=== PATIENT | female | born 1940 | race Caucasian/White ===

== ENCOUNTER 2018-12-04 08:52 | Outpatient (CLI) | payer OTHER, SELFPAY ==
--- NOTE | 2018-12-04 09:00 | DI.COMBO_ITS ---
SYMPTOM/DIAGNOSIS: DIAGNOSTIC, LT BREAST LUMP, N63.20 MAMMOGRAMS AND LEFT BREAST ULTRASOUND: Mammograms were interpreted according to the usual protocol including computer analysis with CAD system, tomosynthesis and C view imaging. Breast density, Category A. No suspicious masses or microcalcifications are seen. There has been no significant change compared to the prior examination. A left breast ultrasound was performed in the area of palpable concern. No cystic or solid masses are seen sonographically. IMPRESSION: No evidence for malignancy. Yearly mammography is recommended. Category 1. Negative mammogram and ultrasound should not preclude biopsy of a clinically suspicious mass. The findings were discussed with the patient on the date of the examination. [facility] ASSESSMENT OF FINDINGS: Negative. Category 1. Patient will receive a letter notifying them of these results. BI-RAD category A. The breasts are almost entirely fatty.
== END 2018-12-04 09:12 ==
PROVIDERS: PCP Family Medicine; Visit Provider Family Medicine
DX: N63.20 Unspecified lump in the left breast, unspecified quadrant (principal)
CPT/HCPCS: 76642; 77062; 77066; G0279

== ENCOUNTER 2019-08-06 11:34 | Outpatient (REF) | payer OTHER, SELFPAY | END 2019-08-06 11:54 | LOC: NCHCN 11:34 | PROVIDERS: PCP Family Medicine; Visit Provider Nurse Practitioner Family | DX: R82.79 Other abnormal findings on microbiological examination of urine (principal); M25.559 Pain in unspecified hip | CPT/HCPCS: 87086 ==

== ENCOUNTER 2019-08-07 00:56 | Outpatient (CLI) | payer OTHER, SELFPAY ==
--- NOTE | 2019-08-07 08:04 | DI.RAD_ITS ---
EXAM: XR HIP RT COMPLETE AP PELVIS INDICATION: RT HIP PAIN,M25.559,H/O ENDOMETRIAL CA IN .H/O HYSTERECTOMY,?ARTHRITI. COMPARISON: No exams were available for comparison TECHNIQUE: 2D digital imaging was performed. FINDINGS: Images of the right hip reveal severe DJD. There is no localized area of osteolysis, sclerosis or sumi ny expansion to suggest metastatic disease.
== END 2019-08-07 01:16 ==
PROVIDERS: PCP Family Medicine; Visit Provider Nurse Practitioner Family
DX: M25.551 Pain in right hip (principal); M16.11 Unilateral primary osteoarthritis, right hip; Z85.42 Personal history of malignant neoplasm of other parts of uterus
CPT/HCPCS: 73502

== ENCOUNTER 2020-05-27 19:17 | Outpatient (REF) | payer OTHER, SELFPAY ==
[2020-05-27 19:25] LABS: HCT 40.2 % (36.0-46.0); HGB 12.7 g/dL (11.2-15.7); MCH 28.9 pg (27.0-33.0); MCHC 31.6 % (32.0-36.0); MCV 91.4 fL (80-95); MPV 10.7 fL (8.0-11.0); Platelet Count 402 10^3/uL (130-400); RDW 12.5 % (11.7-14.6); RDW-SD 41.5 fL; WBC 10.15 10^3/uL (4.4-10.8)
[2020-05-27 19:50] LABS: Glucose 86 mg/dL (74-106); TSH (W/Ref FT4) 2.24 uIU/mL (0.36-3.74)
== END 2020-05-27 19:37 ==
LOC: NCHCN 19:17
PROVIDERS: PCP Family Medicine; Visit Provider Family Medicine
DX: E78.5 Hyperlipidemia, unspecified (principal); Z13.1 Encounter for screening for diabetes mellitus; Z13.29 Encounter for screening for other suspected endocrine disorder
CPT/HCPCS: 82947; 85027; 84443

== ENCOUNTER 2020-08-06 22:46 | Outpatient (REF) | payer OTHER, SELFPAY ==
[2020-08-06 19:24] LABS: Abs Immature Grans 0.02 10^3/uL (0.0-0.06); Absolute Basophil Count 0.06 10^3/uL (0.0-0.2); Absolute Eosinophil Count 0.13 10^3/uL (0.0-0.7); Absolute Lymphocyte Count 3.59 10^3/uL (1.2-3.4); Absolute Monocyte Count 0.65 10^3/uL (0.1-0.8); Absolute Neutrophil Count 5.38 10^3/uL (1.2-6.7); Basophils % 0.6; Eosinophils % 1.3; HGB 12.8 g/dL (11.2-15.7); Immature Grans % 0.2; Lymphocytes % 36.5; MCH 29.2 pg (27.0-33.0); MCHC 31.2 % (32.0-36.0); MCV 93.4 fL (80-95); MPV 10.7 fL (8.0-11.0); Monocytes % 6.6; Neutrophils % 54.8; Nucleated RBC 0 %; Platelet Count 404 10^3/uL (130-400); RBC 4.39 10^6/uL (3.93-5.22); RDW 12.8 % (11.7-14.6); RDW-SD 43.8 fL; WBC 9.83 10^3/uL (4.4-10.8)
[2020-08-06 19:47] LABS: ALT 17 U/L (14-59); AST 17 U/L (15-37); Albumin 3.7 g/dL (3.4-5.0); Alkaline Phosphatase 97 U/L (46-116); BUN 12 mg/dL (7-18); Bilirubin, Total 0.3 mg/dL (0.2-1.0); CREATININE 0.81 mg/dL (0.55-1.02); Calcium 9.4 mg/dL (8.5-10.1); Chloride 102 mmol/L (98-107); Glucose 87 mg/dL (74-106); Sodium 138 mmol/L (136-145); Total Protein 7.6 g/dL (6.4-8.2)
== END 2020-08-06 23:06 ==
LOC: NCHCN 22:46
PROVIDERS: PCP Family Medicine; Visit Provider Physician Assistant Medical
DX: Z01.818 Encounter for other preprocedural examination (principal)
CPT/HCPCS: 80053; 85025

== ENCOUNTER 2020-10-06 01:19 | Outpatient (CLI) | payer OTHER, SELFPAY ==
--- OUTSIDE RECORDS SUMMARY | 2020-10-06 01:21 | XMS_ITS ---
:1940 Author Organization [facility] Address [address] [place] [address] Care Team Providers Name Role Phone Merary oLco Unavailable Unavailable PROBLEMS Type Condition ICD9-CM [id number] Onset Condition SNOMED Cod e Code Code Dates Status Problem Hammertoe of M20.41 Active 8074111 [id number] second toe of right foot Problem Unspecified lump N63.20 Active 122 [id number] in the left breast, unspecified quadrant Problem Bunion of M21.619 Active 604963418 unspecified foot Problem Hammertoe of M20.42 Active 6376709 332688076 second toe of left foot Problem Diverticulosis of K57.30 Active 73 1845151 colon Problem Elevated BP R03.0 Active 32326676 5 without diagnosis of hypertension Problem Hand numbness R20.0 Active 625739 05 Problem Malignant neoplasm C54.1 Active 1 86943518 of endometrium Problem Ankle fracture, S82.892A Active 4218 8001 left Problem Overweight E66.3 Active 524247593 Problem Hip pain M25.559 Active 74485326 Problem Hammertoe M20.40 Active 134041904 Problem Joint swelling M25.40 Active 57970 1009 Problem Chest pain R07.9 Active 68550116 Problem Easy bruising R23.8 Active 509524 007 Problem Lump of breast N63.0 Active 06616 003 Problem TIA (transient G45.9 Active 56641 7000 ischemic attack) Problem Rash R21 Active 5463190 Problem Memory loss R41.3 Active 12560413 Problem Insomnia G47.00 Active 350465824 ALLERGIES No Known Allergies ENCOUNTERS Encounter Location Date Diagnosis [facility] [address] [facility] [address] Aug, [place] [address] right foot M 20.41 [facility] [address] [facility] [address] Aug, [place] [address] right foot M 20.41 [facility] [address] [facility] Aug, [place] [address] [facility] [address] [facility] Aug, [place] [address] [facility] [address] [facility] Jul, [place] [address] [address] [address] [facility] Jul, [place] [address] [facility] [address] [facility], [place] [address] [facility] [address] [facility], [facility], [place] [address] [facility] [address] [facility] [address] Jul, [place] [address] right foot M 20.41 and Bunion, right fo ot M21.611 [facility] [address] [facility] Jul, Hammertoe M20. 40 ; [place] [address] of second to e of right foot M20.41 ; Hammert oe of second toe of left foot M20.42 ; Bunion, right fo ot M21.611 and Bunion, left foot M21.612 IMMUNIZATIONS No Known Immunizations SOCIAL HISTORY Qualifiers Date Never Smoker REASON FOR REFERRAL FUNCTIONAL STATUS PLAN OF CARE Activity Details Follow Up prn Reason: Future Test X Foot L 3V 20200722 Future Test X Foot R 3V 20200722 VITAL SIGNS Height 63 in 2020-09-01 Weight 142 lbs 2020-09-01 BMI 25.15 kg/m2 2020-09-01 Temperature 97.0 degrees Fahrenheit 2020-09-01 Heart Rate 64 /min 2020-09-01 Respiratory Rate 18 /min 2020-09-01 Oximetry 100 % 2020-09-01 Blood pressure systolic 151 mm Hg 2020-09-01 Blood pressure diastolic 73 mm Hg 2020-09-01 MEDICATIONS Medication Instructions Dosage Frequency Start End Date Duration Stat us Date Tylenol 8 Hour Orally every 8 2 tablets 8h Active Arthritis Pain hrs as needed 650 MG PROCEDURES No Known procedures RESULTS Name Result Date Reference Range X Foot R 3V 2020-08-19 See Below For Report [id number] 2020-08-14 COVID-19 Not Detected Not Detected X Foot L 3V 2020-07-22 See Below For Report X Foot R 3V 2020-07-22 See Below For Report REASON FOR VISIT POST OP #4 cancelled per AR on 09-01-2020, POST OP #3 Xrays cancelled per AR on 09-01-2020, POST OP #2, referral done, pt states that she is here for post op 2 , pt states that things have been going good, and that she hasn't had any pain , POST OP #1, referral done, Amputation of Right Second Toe atthe Metatarsophalangeal Joint 08/19/20 by KIMI CARRERO, pt states that she is here for post op 1 , pt states that things are going okay , pt states that she only used tylenol for a couple days after surgery,last dose was taken on sunday , 2ng toe amp right foot, Right 2nd toe MTPJ amputation, Pre-op DOS 08/19/20, PCP note 08/10KG, surgery/note, PDMP query surgery 08/12, pre-op for 08/19 surgery, referral done, pt states that she is here for pre-op appointment , pt states that she would like to discuss moreabout being able to walk after surgery , hammer toe referral done, pt states that she is here for a hammer toe , pt states that the hammertoe is on the right foot 2nd toe , pt states that toe is painful after she does a lot of walking , pt states that the toe has been bothering her for the past month,but has been curled for a long time now , pt states that she is looking for away to help reduce the pain when she is walking , pt states that she has not had any x-rays done Insurance Providers [facility] Health Member Patient Patient Patient Patient Patient Subscriber Subscriber Subscriber Group Insurance Plan Plan Plan Plan ID Relationship Address Phone Name Date of ID Name Date of No Type Insurance Insurance Insurance Coverage to Subscriber Address Phone Name Dates UNITED [phone] [place] self LINDA [id number] [facility] [id number] [facility] [place] MEDICARE COMPLETE [facility] COMPLETE [phone] SELF PAY self LINDA [id number] [place] [id number] MEDICARE MEDICAL (GENERAL) HISTORY Type Description Date Medical History Memory loss Medical History Easy bruising Medical History Hammertoe Medical History Bunion of unspecified foot Medical History Insomnia Medical History Hip pain Medical History Unspecified lump in the left breast, uns pecified quadrant Medical History Rash Medical History Hand numbness Medical History Joint swelling Medical History TIA (transient ischemic attack) Medical History Ankle fracture, left Medical History Malignant neoplasm of endometrium Medical History Diverticulosis of colon Medical History Lump of breast Medical History Overweight Medical History Elevated BP without diagnosis of hyperte nsion Medical History Chest pain Surgical History S/P appendectomy Surgical History S/P cholecysteotomy Surgical History S/P PATITO/BSO Surgical History s/p Amputation of Right Second Toe at th e 08/19/2020 Metatarsophalangeal Joint Hospitalization History No Hospitalization history informati on
[2020-10-06 12:53] LABS: CREATININE 0.85 mg/dL (0.55-1.02)
[2020-10-06] MEDS: Omnipaque 350 MG/ML 50 ML BTL PO (14:20)
--- NOTE | 2020-10-06 14:20 | DI.CT_ITS ---
EXAM: CT CHEST/ABD/PEL W CLINICAL HISTORY: RUQ PAIN,R10.11, CHEST PAIN,R07.89 TECHNIQUE: Imaging Protocol: Axial computed tomography images with coronal and sagittal reformatted images were created and reviewed CONTRAST MATERIAL: Intravenous: Omnipaque 350 Contrast volume:100 mL Oral: Yes COMPARISON: No exams were available for comparison FINDINGS: CHEST: Tracheobronchial tree: Patent where visualized. Mediastinum and Jodie: No dominant adenopathy or fluid collection. Pulmonary parenchyma: No consolidation or dominant measurable mass. No architectural distortion. Pleura: No effusion or pneumothorax. Heart: The heart is not dilated. No coronary artery calcifications are seen. No pericardial effusion. Aorta: Thoracic aorta non-dilated. Atherosclerosis. Lymph nodes: Within normal limits. Bones:Normal. Soft tissues: Unremarkable. ABDOMEN: Liver: Normal density. No measurable mass. Portal, Superior Mesenteric, and Splenic Veins: Unremarkable. Gallbladder and Biliary Tract: Status post cholecystectomy. No biliary ductal dilatation. Pancreas: Normal density, no abnormal calcifications or inflammatory process. Spleen: Normal. Adrenals: No masses seen. Kidneys: Normal size, contour and axis. No radiodense stones or obstructive uropathy. No masses seen. Abdominal Aorta: Abdominal portion non-dilated. Atherosclerosis. Bowel: No obstruction or bowel wall thickening. No evidence of appendicitis. Diverticulosis of the d escending and sigmoid colon but no evidence of acute diverticulitis. Peritoneal Cavity: No ascites, collection or mesenteric inflammatory response. Lymph Nodes: Within normal limits. Bones: Unremarkable. Soft Tissues: Unremarkable. PELVIS: Bladder: Symmetric distention, no gross wall thickening. Reproductive Organs: Status post hysterectomy. Lymph Nodes: Within normal limits. Bones: Marked degenerative changes are seen in the hips bilaterally. DISH is seen throughout the spi ne. IMPRESSION: 1. No acute abdominal or pelvic process. 2. No acute pulmonary process. 3. Marked degenerative changes of the hips bilaterally. 4. Status post cholecystectomy and hysterectomy. No biliary ductal dilatation. RADIATION DOSE DELIVERED: 1,009.01mGy.cm Total DLP DATA REPOSITORY: All CT scans at this facility are submitted to the National Radiology Data Registry (NRDR) Dose Index Registry (DIR) with the [employer] (ACR). RADIATION OPTIMIZATION: All CT scans at this facility use at least one of these dose optimization te chniques: automated exposure control; mA and/or kV adjustment per patient size (includes targeted exa ms where dose is matched to clinical indication); or iterative reconstruction.
[2020-10-06] MEDS: Normal Saline - Diluent 50 ML VIAL IV (14:21)
[2020-10-06] MEDS: Normal Saline Flush 10 ML SYR IVP (14:21)
== END 2020-10-06 01:39 ==
PROVIDERS: PCP Family Medicine; Visit Provider Family Medicine
DX: R10.11 Right upper quadrant pain (principal); R07.89 Other chest pain; M16.0 Bilateral primary osteoarthritis of hip; Z90.49 Acquired absence of other specified parts of digestive tract; Z90.710 Acquired absence of both cervix and uterus
CPT/HCPCS: 74177; 71260; 82565; Q9967

== ENCOUNTER 2020-12-31 14:50 | Outpatient (REF) | payer MEDICARE, SELFPAY ==
[2020-12-31 16:54] LABS: C-Reactive Protein 0.49 mg/dL (0.0-0.3); Creatine Kinase 79 U/L (26-192)
[2020-12-31 21:49] LABS: ESR 53 mm/hr (<or=30)
== END 2020-12-31 14:51 | disposition home or self-care (01) ==
LOC: NCHCN 14:50
PROVIDERS: PCP Family Medicine; Visit Provider Family Medicine
DX: R10.31 Right lower quadrant pain (principal); R21 Rash and other nonspecific skin eruption
CPT/HCPCS: 82550; 85652; 86140

== ENCOUNTER 2021-09-02 14:58 | Outpatient (REF) | payer MEDICARE, SELFPAY ==
[2021-09-02 19:48] LABS: ESR 34 mm/hr (0-30)
[2021-09-02 20:22] LABS: C-Reactive Protein 0.27 mg/dL (0.0-0.3); TSH (W/Ref FT4) 2.01 uIU/mL (0.36-3.74)
[2021-09-02 21:04] LABS: Vitamin B12 190 pg/mL (193-986)
== END 2021-09-02 14:59 | disposition home or self-care (01) ==
LOC: NCHCN 14:58
PROVIDERS: PCP Family Medicine; Visit Provider Family Medicine
DX: G25.2 Other specified forms of tremor (principal); Z00.00 Encounter for general adult medical examination without abnormal findings; R20.2 Paresthesia of skin
CPT/HCPCS: 85652; 82607; 84443; 86140

== ENCOUNTER 2023-01-16 01:54 | Outpatient (CLI) | payer MEDICARE, SELFPAY ==
--- NOTE | 2023-01-16 08:30 | DI.MAMMO_ITS ---
Exam(s) MAMMO SCREENING EXAM: MAMMO SCREENING CLINICAL HISTORY: SCREENING, Z12.31, FAMILY H/O BREAST CA, Z80.3 TECHNIQUE: Mammograms were interpreted according to the usual protocol including computer analysis w [employer] CAD system, tomosynthesis and C-view imaging. COMPARISON: 2013 through 2018 FINDINGS: The breasts are composed of scattered fibroglandular densities, Breast Density category B. No suspicious masses or suspicious microcalcifications are seen. No skin thickening or abnormal axillary lymph nodes are seen. There has been no significant change from prior exams. IMPRESSION: BI-RADS Category 1, Negative mammogram Yearly screening mammography is recommended. Breast Density - Category B, scattered fibroglandular densities. A negative radiographic report should not delay biopsy if a dominant or clinically suspicious mass is present. Up to ten percent of cancers are not identified on mammography. A negative report may reinforce clinical impression. Adenosis and dense breasts may obscure an underlying neoplasm. False positive reports average 6 to 10%. Patient will receive a letter notifying them of these results.
== END 2023-01-16 02:14 ==
LOC: DI 01:54
PROVIDERS: PCP Family Medicine; Visit Provider Family Medicine
DX: Z12.31 Encounter for screening mammogram for malignant neoplasm of breast (principal); Z80.3 Family history of malignant neoplasm of breast
CPT/HCPCS: 77063; 77067

== ENCOUNTER → 2023-07-05 13:14 | Outpatient (CLI) | payer MEDICARE, SELFPAY ==
--- NOTE | 2023-07-05 | DI.RAD_ITS ---
Exam(s) XR ANKLE LT COMPLETE EXAM: XR ANKLE LT COMPLETE CLINICAL HISTORY: LT ANKLE PAIN, M25.72,HARDWARE IN PLACE,NEW SWELLING AND PAIN, NO INJURY TECHNIQUE: 2D digital imaging was performed. Three views. COMPARISON: No exams were available for comparison FINDINGS: BONES: No acute fracture is present. No bony destructive lesion is seen. Two screws are noted in th e medial malleolus. Two screws are noted in the lateral malleolus. Heel spurs noted. JOINTS:The ankle mortise is normally aligned. Degenerative changes medial tibial talar joint and fi bular talar joint. Mild tibiotalar joint space narrowing. Severe degenerative changes talonavicular joint. Severe degenerative changes posterior talocalcaneal joint. SOFT TISSUE: Vascular calcifications. IMPRESSION: Postsurgical and degenerative changes. DATA REPOSITORY: RADIATION DOSE DELIVERED:
== END ==
PROVIDERS: PCP Family Medicine; Visit Provider Nurse Practitioner Family
DX: Z98.890 Other specified postprocedural states (principal); M25.572 Pain in left ankle and joints of left foot
CPT/HCPCS: 73610

== ENCOUNTER 2023-09-28 07:53 | Day surgery (SDC) | payer MEDICARE, SELFPAY ==
[2023-09-28 08:10] VITALS: BP 149/74; PULSE 77; RESP 18; TEMP 36.1; O2SAT 98
[2023-09-28] MEDS: Tropicam./Phenyleph. (1/2.5%) 5 ML BTL OS ×3 (08:28→08:36)
--- NOTE | 2023-09-28 09:09 | ANES.PREOP_ITS ---
General Info Date of Service Date Performed: 09/28/23 Height: 5 ft 3.5 in Weight: 69.6 kg Body Mass Index (BMI): 26.7 Surgical Procedure: Operation Date: 09/28/23 09:55 Proposed Procedure Side Surgeon p Cataract Extraction with IOL Implant Left Warner Baker MD Meds Allergies and Home Medications Allergies Allergy/AdvReac Type Severity Reaction Status Date / Time No Known Allergies Allergy Unverified 09/28/23 08:26 Home Medication Medication Instructions Recorded aspirin 325 mg tablet,delayed 325 mg PO DAILY stroke prevention 10/16/15 release ##100 aspirin 81 mg tablet,delayed 81 mg PO DAILY 08/03/22 release acetaminophen 500 mg tablet 500 mg PO Q6H PRN 07/11/23 cholecalciferol (vitamin D3) 50 50 mcg PO DAILY 07/11/23 mcg (2,000 unit) capsule mecobalamin (vitamin B12) 1,000 1,000 mcg sublingual DAILY 07/11/23 mcg disintegrating tablet,sublingual memantine 14 mg capsule 14 mg PO DAILY 07/11/23 sprinkle,extended release 24hr ascorbic acid (vitamin C) 1,000 mg 1 g PO DAILY 09/25/23 tablet (C-1000) Current Visit Medications: Current Medications Generic Name Dose Route Start Last Admin Trade Name Freq PRN Reason Stop Dose Admin Acetaminophen 1,000 mg 09/28/23 06:00 Acetaminophen 500 Mg Tab PO 10/28/23 05:59 Q4H PRN PRN Balanced Salt Solution 500 ml 09/28/23 06:00 Balanced Salt Soln.-Plus 500 Ml Bag OP 10/28/23 05:59 DIRECTED [facility] Miscellaneous Medication 0 ml 09/28/23 06:00 09/28/23 08:36 Tropicam./Phenyleph. (1/2.5%) 5 Ml Btl OS 10/28/23 05:59 1 drp DIRECTED [facility] Administration Miscellaneous Medication 0 ml 09/28/23 06:00 Prednisolone 1%, Moxifloxacin 0.5%, Bromfenac 0.09% 5ml Btl OS 10/28/23 05:59 DIRECTED DARREN Tetracaine HCl 0 ml 09/28/23 06:00 Tetracaine 0.5% 4 Ml Btl OS 10/28/23 05:59 DIRECTED [facility] PFSH Active Problems Active Problems: Problem Status Onset Code Cortical age-related cataract, left eye H25.012 Nuclear age-related cataract, left eye H25.12 Memory impairment R41.3 Elevated TSH R94.6 TIA (transient ischemic attack) G45.9 Vertigo R42 Medical History Medical History Paresthesia Breast lump Diverticulosis Hip pain Amnesia History of malignant neoplasm of uterine body Elevated blood pressure reading without diagnosis of hypertension Effusion of joint Fracture of lower leg Vitamin B deficiency Disseminated idiopathic skeletal hyperostosis Right lower quadrant abdominal pain Right upper quadrant abdominal pain Idiopathic osteoarthritis Insomnia Mass of left breast Hammer toe Chest pain Pt. states it was so quick and it went away, it went through my breast, and didn't last. Pt. states she didn't have it looked into because it was so quick and went away quick Diverticulosis of colon History of malignant neoplasm of endometrium Paresthesia of both hands Action tremor Surgical History Surgical History History of bilateral carpal tunnel release History of colonoscopy History of open reduction and internal fixation (ORIF) procedure left ankle H/O spinal fusion History of cardiac cath 2000 Status post total abdominal hysterectomy and bilateral salpingo-oophorectomy (PATITO-BSO) History of cholecystectomy History of appendectomy Tobacco Smoking/Tobacco Use Status: Never Alcohol Alcohol Intake: former Substance Use Substance use: Never Substance use type: does not use Vital Signs and Lab Results Vital Signs Most Recent Vital Signs in EMR: Most Recent Vital Signs Temp Pulse Resp BP Pulse Ox 36.1 C L 77 18 149/74 H 98 09/28/23 08:10 09/28/23 08:10 09/28/23 08:10 09/28/23 08:10 09/28/23 08:10 Lab Results Blood Type / Crossmatch: No Data to Display Complete Blood Count: No Data to Display Complete Metabolic Panel: No Data to Display Liver Function Panel: No Data to Display Coagulation Panel: No Data to Display Cardiac Panel: No Data to Display Arterial Blood Gas: No Data to Display Venous Blood Gas: No Data to Display Pancreas Panel: No Data to Display Thyroid Panel: No Data to Display Infectious Disease: No Data to Display Blood Cultures: No Data to Display Toxicology Panel: No Data to Display Anesthesia Assessment and Plan Anesthesia History Personal History: No History of Anesthesia Complications Family History: No Family History of Anesthesia Complications Exercise Tolerance Exercise Tolerance: Metabolic Equivalents>4 Pertinent Negatives Pertinent Negatives: No Major Pulmonary Symptoms or Complaints Cardiac & Pulmonary Exam Cardiac Exam: Normal S1/S2 Heart Sounds Pulmonary Exam: Clear Bilateral Breath Sounds Implantable Cardiac Device Does patient have a Pacemaker or an ICD?: No Airway Exam Known Difficult Airway: No Mallampati Class: 2 Mouth Opening: Normal (> 3cm) Thyromental Distance: Greater than 3 cm Neck Range of Motion: Full ROM Neck Circumference: Normal Teeth Condition: Removable Dentures/Plates Upper ASA Classification ASA Score: ASA 3 Emergency Case?: No NPO Status NPO Status: NPO Clears >2 hours, Solids >8 hours Anesthesia Plan Resuscitation Status: Full Code Anesthesia Technique: MAC Anesthesia Airway Planned: Natural Airway Monitors Used: Standard Monitors
[2023-09-28 09:34] VITALS: BMI 26.7
[2023-09-28] MEDS: Balanced Salt Soln.-PLUS 500 ML BAG OP (09:44)
[2023-09-28] MEDS: Tetracaine 0.5% 4 ML BTL OS (09:45)
[2023-09-28] MEDS: Duovisc Viscoelastic System EACH 1 EACH (09:45)
[2023-09-28] MEDS: Lidocaine 1% Pres-Free 5 ML VIAL (09:45)
[2023-09-28] MEDS: Povidone-Iodine Ophth 30 ML BTL (09:47)
[2023-09-28 10:04] VITALS: BP 162/81; PULSE 70; RESP 18; TEMP 36.1; O2SAT 99
--- NOTE | 2023-09-28 10:04 | W.PM.DSUDISC ---
Date of service: 09/28/23 Time of Service: 10:04 Discharge Plan Disposition Patient Disposition: Home Discharge Details Attending Provider: Warner Baker Primary Care Provider: Kaykay Cruz V Home Meds and New Rx's Prescriptions: No Action aspirin 81 mg tablet,delayed release (DR/EC) 81 mg PO DAILY cholecalciferol (vitamin D3) 50 mcg (2,000 unit) capsule 50 mcg PO DAILY mecobalamin (vitamin B12) 1,000 mcg tablet,disintegrating 1,000 mcg sublingual DAILY Rx Instructions: place tablet under tongue and allow to dissolve for at least30 secs before swallowing acetaminophen 500 mg tablet 500 mg PO Q6H PRN memantine 14 mg capsule,sprinkle,ER 24hr 14 mg PO DAILY aspirin 325 MG tablet,delayed release (DR/EC) 325 mg PO DAILY Qty: 100 0RF ascorbic acid (vitamin C) [C-1000] 1,000 mg tablet 1 g PO DAILY Discharge Instructions Stand Alone Forms: Post-op Topical Cataract, Press Ganey (DSU) Discharge Orders Discharge Orders: Discharge Order (Routine); Ordered 09/28/23 Ordered By: Warner Baker DS: Diagnosis Discharge Diagnosis (1) Cortical age-related cataract, left eye: Status: Resolved (2) Nuclear age-related cataract, left eye: Status: Resolved
--- NOTE | 2023-09-28 10:05 | W.PM.OP ---
Date of service: 09/28/23 Time of Service: 10:05 Operative Note Operative Note DATE OF PROCEDURE: 09/28/23 PRE-OP DIAGNOSIS: Nuclear/cortical cataract, left eye POST-OP DIAGNOSIS: same PROCEDURE: Cataract extraction using phacoemulsification with intraocular lens implant, left eye SURGEON: Warner Baker ANESTHESIA TYPE: Local By Surgeon and MAC Refer to Anesthesia Record PATHOLOGY: none sent COMPLICATIONS: None Patient was transported to: same day Patient's condition: stable Implants: Davidson Clareon [id number] Indications: Progressive decreased vision due to cataract, left eye Procedure Description: CATARACT SURGERY OPERATIVE REPORT PREOPERATIVE DIAGNOSIS: Nuclear/cortical cataract, left eye POSTOPERATIVE DIAGNOSIS: Same OPERATION: Cataract extraction using phacoemulsification with posterior chamber intraocular lens implant, left eye. IOL: IOL Implementation Consultant/Model: Davidson Clareon [id number] IOL Power: + 22.0 diopters IOL Serial Number: [id number] Optic Diameter: 6.0mm Haptic/Overall Diameter: 13.0mm PHACO INFO: Davidson Riskthinktankurion Vision System with OZil and Active Fluidics Cumulative Dispersed Energy (CDE): 13.88 seconds SURGEON: Warner Baker MD, ERICK ANESTHESIA: Monitored Anesthesia Care (MAC), with local sub-tenon's anesthetic infiltration COMPLICATIONS: None SPECIMENS: None INDICATIONS FOR PROCEDURE: The patient is an 82-year-old lady with history of diminished visual acuity in her left eye secondary to the development of nuclear/cortical cataract. She is significantly symptomatic that she desires cataract surgery and attempt to improve and maximize her vision. The option of cataract surgery was offered to the patient and she wished to proceed. See office notes for detailed information. PROCEDURE: The correct surgical eye was identified and marked as the left eye and the pupil was dilated in the preoperative area using mydriatics and cycloplegics. The dilated pupil size was 6.0 mm. The patient elected to proceed without oral sedation. The patient was brought to the operating room where cardiopulmonary monitoring was instituted and surgical time-out was performed, confirming the correct operative eye and IOL power. Topical anesthesia was administered and ophthalmic povidone-iodine 5% was instilled into the conjunctival fornices. The radha-ocular area was prepped with Betadine 10% solution and draped in the usual sterile fashion for intraocular surgery, including an aperture drape. A Tegaderm transparent film dressing was cut in half and used to cover the lashes and lid margins. Care was taken to sequester the lashes and lid margins under the Tegaderm dressing. A lid speculum was placed between the lids of the operative eye and the Davidson LuxOR Revalia operating microscope was maneuvered into position. Carrol scissors were then used to make a conjunctival buttonhole approximately 6mm posterior to the limbus in the inferonasal quadrant. Blunt dissection was carried out to expose bare sclera, and a blunt-tipped sub-tenon?s anesthesia cannula was introduced and passed posteriorly along the globe where non-preserved plain lidocaine was injected into posterior sub-Tenon?s space. A sideport knife was used to make a paracentesis port. Intraocular phenylephrine/lidocaine was injected into the anterior chamber. The anterior chamber was then filled with viscoelastic. A keratome knife was used construct a two-plane clear corneal tunnel extending 2.0mm into clear cornea. A flap was raised on the anterior capsule and capsulorhexis forceps were used to complete a continuous curvilinear capsulorhexis of 5.0 mm. Balanced salt solution was then used to perform cortical cleaving hydrodissection and nuclear hydrodelineation until the lens could be freely rotated within the capsular bag. The lens nucleus was then disassembled and removed within the capsular bag and iris plane using phacoemulsification. Residual cortical material was removed using the irrigation/aspiration handpiece. The posterior capsule was carefully polished to remove as much residual lens epithelial cells as safely possible. The capsular bag was then inflated and the anterior chamber deepened with viscoelastic. The lens implant described above was inserted into the capsular bag using the Davidson Autonome Injector. A Kuglen hook was used to dial the IOL into position. Residual viscoelastic was then removed first from posterior to the IOL, then from the anterior chamber using the I/A handpiece. The lens implant was noted to center nicely within the capsular bag. The incisions were stromally hydrated, and the anterior chamber was reformed using BSS. Then 0.5cc of moxifloxacin 1.0mg/ml were injected into the capsular bag and anterior chamber. The incisions were checked with a Weck spear and found to be secure. Several drops of ophthalmic povidone-iodine 5% were then applied to the eye followed by two drops of Imprimis combination prednisolone/moxifloxacin/nepafenac solution. The drapes were removed and a clear plastic protective eye shield was placed over the eye. The patient was then returned to Same Day Surgery in stable condition.
--- NOTE | 2023-09-28 10:18 | W.ANESPOSTOP ---
Postoperative Evaluation Date, Time and Location Date Performed: 09/28/23 Time Performed: 10:05 Patient Location: Day Surgery Unit Vital Signs Most Recent Imported Vital Signs: Most Recent Vital Signs Temp Pulse Resp BP Pulse Ox 36.1 C L 70 18 162/81 H 99 09/28/23 10:04 09/28/23 10:04 09/28/23 10:04 09/28/23 10:04 09/28/23 10:04 Pain Score Most Recent Pain Score: Most Recent Pain Score Pain Level 0 09/28/23 10:04 Assessment Mental Status: Awake (Alert & Oriented to Patient Baseline) Airway and Respiratory Function: Patent airway with normal (patient baseline) respiratory exam Cardiovascular Function: Hemodynamically Stable Hydration Status: Adequately Hydrated Nausea & Vomiting: No Nausea or Vomiting Pain: Pt. Denies Any Pain Peripheral Nerve Block: Patient did not receive a nerve block
== END 2023-09-28 10:36 | disposition home or self-care (01) ==
LOC: SUR 07:54
PROVIDERS: PCP Family Medicine; Visit Provider Ophthalmology
PROC: (CPT 66984; principal; 2023-09-28 09:45)
DX: H25.012 Cortical age-related cataract, left eye (principal); H25.12 Age-related nuclear cataract, left eye
CPT/HCPCS: 66984; 00123; V2632

== ENCOUNTER 2023-10-12 06:54 | Day surgery (SDC) | payer MEDICARE, SELFPAY ==
--- OUTSIDE RECORDS SUMMARY | 2023-10-12 06:55 | XMS_ITS | Patient Health Record ---
Author Name Unknown [facility] Address [address] [place] [address] Care Team Providers Care Outside Industrial Sales Representative Name Role Phone TORSTEN DALTON MD Primary Care Provider UnavailMerary Melton Unavailable [phone] REASON FOR REFERRAL No Information MEDICATIONS Medication SIG (Take, Route, Frequency, Duration) Notes Start Date End Date Status Tylenol 8 Hour Arthritis Pain 650 MG 2 tablets as needed Orally every 8 hrs PRN Active SOCIAL HISTORY Tobacco Use: Social History Observation Description Date Details (start date - stop date) Never Smoker NA - NA Sex Assigned At : Social History Observation Description Sex Assigned At Unknown SMOKING Question Answer Notes Are you a: nonsmoker PROBLEMS Problem Type ICD Code Onset Dates Problem Status W/U Status Risk SNOMED Code Notes Problem Chest pain (R07.9) Active confirmed Chest pain (30941449) Problem Hammertoe (M20.40) Active confirmed Hammer toe (731166391) Problem Insomnia (G47.00) Active confirmed Insomnia (074324149) Problem Memory loss (R41.3) Active confirmed Memory loss (72028175) Problem Rash (R21) Active confirmed Rash (90464 7003) Problem TIA (transient ischemic attack) (G45.9) Active confirmed Transient ische brandon attack (828277471) Problem Hip pain (M25.559) Active confirmed Hip pain (16979269) Problem Overweight (E66.3) Active confirmed Overweight (855145835) Problem Ankle fracture, left (S82.892A) Active confirmed Closed fract ure of ankle (30857882) Problem Joint swelling (M25.40) Active confirmed Joint swelling (561446105) Problem Easy bruising (R23.8) Active confirmed Easy bruising (516730026) Problem Hand numbness (R20.0) Active confirmed Skin sensation disturbance (14365895) Problem Malignant neoplasm of endometrium (C54.1) Active confirmed Malignant neopl asm of corpus uteri, excluding isthmus (466707510) Problem Diverticulosis of colon (K57.30) Active confirmed Diverticulosis of colon (273840062) Problem Elevated BP without diagnosis of hypertension (R03.0) Active confirmed Elevated blood pressure reading without diagnosis of hypertension (181655534) Problem Bunion of unspecified foot (M21.619) Active confirmed Swelling of fir st metatarsophalangeal joint of hallux (993738035) Problem Hammertoe of second toe of left foot (M20.42) Active confirmed 514095257 Problem Hammertoe of second toe of right foot (M20.41) Active confirmed 524870146 Problem Unspecified lump in the left breast, unspecified quadrant (N63.20) Active confirmed Lump in left br east (64338025988468634) Problem Lump of breast (N63.0) Active confirmed Breast lump (80458004) PLAN OF TREATMENT No Information Insurance Providers Payer Name Payer Address Payer Phone Subscriber Number Group Number Insured Name Patient Relationship to Insured Coverage Start Date Coverage End Date [employer] MEDICARE COMPLETE [address] [address] [place] [phone] [id number] LINDA MOTA Self - patient is the insured SELF PAY AFTER MEDICARE [place] [address] [address] LINDA MOTA Self - patient is the insured MEDICAL (GENERAL) HISTORY Medical History History ICD Code Memory loss R41.3 Easy bruising R23.8 Hammertoe M20.40 Bunion of unspecified foot M21.619 Insomnia G47.00 Hip pain M25.559 Unspecified lump in the left breast, uns pecified quadrant N63.20 Rash R21 Hand numbness R20.0 Joint swelling M25.40 TIA (transient ischemic attack) G45.9 Ankle fracture, left S82.892A Malignant neoplasm of endometrium C54.1 Diverticulosis of colon K57.30 Lump of breast N63.0 Overweight E66.3 Elevated BP without diagnosis of hyperte nsion R03.0 Chest pain R07.9 Surgical History Surgery Date(Month/Year) S/P appendectomy S/P cholecysteotomy S/P PATITO/BSO s/p Amputation of Right Second Toe at th e Metatarsophalangeal Joint 08/19/2020 Hospitalization History Reason Date(Month/Year)
[2023-10-12 07:17] VITALS: BP 132/79; PULSE 80; RESP 16; TEMP 36.8; O2SAT 99
--- NOTE | 2023-10-12 08:00 | W.ANESPRE ---
General Info Date of Service Date Performed: 10/12/23 Height: 5 ft 3.5 in Weight: 69.6 kg Body Mass Index (BMI): 26.7 Surgical Procedure: Operation Date: 10/12/23 08:25 Proposed Procedure Side Surgeon p Cataract Extraction with IOL Implant Right Warner Baker MD Meds Allergies and Home Medications Allergies Allergy/AdvReac Type Severity Reaction Status Date / Time No Known Allergies Allergy Unverified 10/12/23 07:17 Home Medication Medication Instructions Recorded acetaminophen 500 mg tablet 500 mg PO Q6H PRN 07/11/23 cholecalciferol (vitamin D3) 50 50 mcg PO DAILY 07/11/23 mcg (2,000 unit) capsule mecobalamin (vitamin B12) 1,000 1,000 mcg sublingual DAILY 07/11/23 mcg disintegrating tablet,sublingual memantine 14 mg capsule 14 mg PO DAILY 07/11/23 sprinkle,extended release 24hr ascorbic acid (vitamin C) 1,000 mg 1 g PO DAILY 09/25/23 tablet (C-1000) Current Visit Medications: Current Medications Generic Name Dose Route Start Last Admin Trade Name Freq PRN Reason Stop Dose Admin Acetaminophen 1,000 mg 10/12/23 06:00 Acetaminophen 500 Mg Tab PO 11/11/23 05:59 Q4H PRN PRN Balanced Salt Solution 500 ml 10/12/23 06:00 Balanced Salt Soln.-Plus 500 Ml Bag OP 11/11/23 05:59 DIRECTED [facility] Miscellaneous Medication 0 ml 10/12/23 06:00 Prednisolone 1%, Moxifloxacin 0.5%, Bromfenac 0.09% 5ml Btl OD 11/11/23 05:59 DIRECTED DARREN Miscellaneous Medication 0 ml 10/12/23 09:00 10/12/23 07:36 Tropicam./Phenyleph. (1/2.5%) 10 Ml Btl OD 10/12/23 23:59 1 drp DIRECTED DARREN Administration Tetracaine HCl 0 ml 10/12/23 06:00 Tetracaine 0.5% 4 Ml Btl OD 11/11/23 05:59 DIRECTED DARREN PFSH Active Problems Active Problems: Problem Status Onset Code Cortical age-related cataract, right eye H25.011 Nuclear age-related cataract, right eye H25.11 Cortical age-related cataract, left eye H25.012 Nuclear age-related cataract, left eye H25.12 Memory impairment R41.3 Elevated TSH R94.6 TIA (transient ischemic attack) G45.9 Vertigo R42 Medical History Medical History Paresthesia Breast lump Diverticulosis Hip pain Amnesia History of malignant neoplasm of uterine body Elevated blood pressure reading without diagnosis of hypertension Effusion of joint Fracture of lower leg Vitamin B deficiency Disseminated idiopathic skeletal hyperostosis Right lower quadrant abdominal pain Right upper quadrant abdominal pain Idiopathic osteoarthritis Insomnia Mass of left breast Hammer toe Chest pain Pt. states it was so quick and it went away, it went through my breast, and didn't last. Pt. states she didn't have it looked into because it was so quick and went away quick Diverticulosis of colon History of malignant neoplasm of endometrium Paresthesia of both hands Action tremor Surgical History Surgical History History of bilateral carpal tunnel release History of colonoscopy History of open reduction and internal fixation (ORIF) procedure left ankle H/O spinal fusion History of cardiac cath 2000 Status post total abdominal hysterectomy and bilateral salpingo-oophorectomy (PATITO-BSO) History of cholecystectomy History of appendectomy Tobacco Smoking/Tobacco Use Status: Never Alcohol Alcohol Intake: former Substance Use Substance use: Never Substance use type: does not use Vital Signs and Lab Results Vital Signs Most Recent Vital Signs in EMR: Most Recent Vital Signs Temp Pulse Resp BP Pulse Ox 36.8 C 80 16 132/79 99 10/12/23 07:17 10/12/23 07:17 10/12/23 07:17 10/12/23 07:17 10/12/23 07:17 Lab Results Blood Type / Crossmatch: No Data to Display Complete Blood Count: No Data to Display Complete Metabolic Panel: No Data to Display Liver Function Panel: No Data to Display Coagulation Panel: No Data to Display Cardiac Panel: No Data to Display Arterial Blood Gas: No Data to Display Venous Blood Gas: No Data to Display Pancreas Panel: No Data to Display Thyroid Panel: No Data to Display Infectious Disease: No Data to Display Blood Cultures: No Data to Display Toxicology Panel: No Data to Display Anesthesia Assessment and Plan Anesthesia History Personal History: No History of Anesthesia Complications Family History: No Family History of Anesthesia Complications Exercise Tolerance Exercise Tolerance: Metabolic Equivalents>4 Pertinent Negatives Pertinent Negatives: No Symptoms of GERD Cardiac & Pulmonary Exam Cardiac Exam: Normal S1/S2 Heart Sounds Pulmonary Exam: Clear Bilateral Breath Sounds Implantable Cardiac Device Does patient have a Pacemaker or an ICD?: No Airway Exam Known Difficult Airway: No Mallampati Class: 2 Mouth Opening: Normal (> 3cm) Thyromental Distance: Greater than 3 cm Neck Range of Motion: Full ROM Neck Circumference: Normal Teeth Condition: Removable Dentures/Plates Upper ASA Classification ASA Score: ASA 2 Emergency Case?: No NPO Status NPO Status: NPO Clears >2 hours, Solids >8 hours Anesthesia Plan Resuscitation Status: Full Code Anesthesia Technique: MAC Anesthesia Airway Planned: Natural Airway Monitors Used: Standard Monitors
[2023-10-12 08:01] VITALS: BMI 26.7
[2023-10-12] MEDS: Balanced Salt Soln.-PLUS 500 ML BAG OP (08:39)
[2023-10-12] MEDS: Duovisc Viscoelastic System EACH 1 EACH (08:41)
[2023-10-12] MEDS: Tetracaine 0.5% 4 ML BTL OD (08:41)
[2023-10-12] MEDS: Lidocaine 1% Pres-Free 5 ML VIAL (08:42)
[2023-10-12] MEDS: Povidone-Iodine Ophth 30 ML BTL (08:43)
--- NOTE | 2023-10-12 08:46 | W.PM.DSUDISC ---
Date of service: 10/12/23 Time of Service: 08:46 Discharge Plan Disposition Patient Disposition: Home Discharge Details Attending Provider: Warner Baker Primary Care Provider: Kaykay Cruz V Home Meds and New Rx's Prescriptions: No Action cholecalciferol (vitamin D3) 50 mcg (2,000 unit) capsule 50 mcg PO DAILY mecobalamin (vitamin B12) 1,000 mcg tablet,disintegrating 1,000 mcg sublingual DAILY Rx Instructions: place tablet under tongue and allow to dissolve for at least30 secs before swallowing acetaminophen 500 mg tablet 500 mg PO Q6H PRN memantine 14 mg capsule,sprinkle,ER 24hr 14 mg PO DAILY ascorbic acid (vitamin C) [C-1000] 1,000 mg tablet 1 g PO DAILY Discharge Instructions Stand Alone Forms: DSU Post-Op Cataract Discharge Orders Discharge Orders: Discharge Order (Routine); Ordered 10/12/23 Ordered By: Warner Baker DS: Diagnosis Discharge Diagnosis (1) Cortical age-related cataract, right eye: Status: Resolved (2) Nuclear age-related cataract, right eye: Status: Resolved
--- NOTE | 2023-10-12 08:46 | W.PM.OP ---
Date of service: 10/12/23 Time of Service: 08:46 Operative Note Operative Note DATE OF PROCEDURE: 10/12/23 PRE-OP DIAGNOSIS: Nuclear/cortical cataract, right eye POST-OP DIAGNOSIS: same PROCEDURE: Cataract extraction using phacoemulsification with intraocular lens implant, right eye SURGEON: Warner Baker ANESTHESIA TYPE: Local By Surgeon and MAC Refer to Anesthesia Record ESTIMATED BLOOD LOSS: 0 PATHOLOGY: none sent COMPLICATIONS: None Patient was transported to: same day Patient's condition: stable Implants: Davidson Clareon [id number] Indications: Progressive decreased vision due to cataract, right eye Procedure Description: CATARACT SURGERY OPERATIVE REPORT PREOPERATIVE DIAGNOSIS: Nuclear/cortical cataract, right eye POSTOPERATIVE DIAGNOSIS: Same OPERATION: Cataract extraction using phacoemulsification with posterior chamber intraocular lens implant, right eye. IOL: IOL Physiotherapy Assistant/Model: Davidson Clareon [id number] IOL Power: + 22.0 diopters IOL Serial Number: [id number] Optic Diameter: 6.0mm Haptic/Overall Diameter: 13.0mm PHACO INFO: DavidsonLabtripurion Vision System with OZil and Active Fluidics Cumulative Dispersed Energy (CDE): 10.09 seconds SURGEON: Warner Baker MD, ERICK ANESTHESIA: Monitored Anesthesia Care (MAC), with local sub-tenon's anesthetic infiltration COMPLICATIONS: None SPECIMENS: None INDICATIONS FOR PROCEDURE: The patient is an 82-year-old lady with history of diminished visual acuity in both eyes secondary to the development of bilateral nuclear/cortical cataract. She is significantly symptomatic that she desires cataract surgery and attempt to improve and maximize her vision. She has already undergone cataract surgery in the left eye and is doing well postoperatively. She now presents for cataract surgery in the right eye. See office notes for detailed information. PROCEDURE: The correct surgical eye was identified and marked as the right eye and the pupil was dilated in the preoperative area using mydriatics and cycloplegics. The dilated pupil size was 6.0 mm. The patient elected to proceed without oral sedation. The patient was brought to the operating room where cardiopulmonary monitoring was instituted and surgical time-out was performed, confirming the correct operative eye and IOL power. Topical anesthesia was administered and ophthalmic povidone-iodine 5% was instilled into the conjunctival fornices. The radha-ocular area was prepped with Betadine 10% solution and draped in the usual sterile fashion for intraocular surgery, including an aperture drape. A Tegaderm transparent film dressing was cut in half and used to cover the lashes and lid margins. Care was taken to sequester the lashes and lid margins under the Tegaderm dressing. A lid speculum was placed between the lids of the operative eye and the Jennifer-Nando operating microscope was maneuvered into position. Carrol scissors were then used to make a conjunctival buttonhole approximately 6mm posterior to the limbus in the inferonasal quadrant. Blunt dissection was carried out to expose bare sclera, and a blunt-tipped sub-tenon?s anesthesia cannula was introduced and passed posteriorly along the globe where non-preserved plain lidocaine was injected into posterior sub-Tenon?s space. A sideport knife was used to make a paracentesis port. Intraocular phenylephrine/lidocaine was injected into the anterior chamber. The anterior chamber was then filled with viscoelastic. A keratome knife was used to construct a two--plane clear corneal tunnel extending 2.0mm into clear cornea. A flap was raised on the anterior capsule and capsulorhexis forceps were used to complete a continuous curvilinear capsulorhexis of 5.0 mm. Balanced salt solution was then used to perform cortical cleaving hydrodissection and nuclear hydrodelineation until the lens could be freely rotated within the capsular bag. The lens nucleus was then disassembled and removed within the capsular bag and iris plane using phacoemulsification. Residual cortical material was removed using the I/A handpiece. The posterior capsule was carefully polished to remove as much residual lens epithelial cells as safely possible. The capsular bag was then inflated and the anterior chamber deepened with cohesive viscoelastic. The lens implant described above was inserted into the capsular bag using the Davidson Autonome Injector. A Kuglen hook was used to dial the IOL into position. Residual viscoelastic was then removed first from posterior to the IOL, then from the anterior chamber using the I/A handpiece. The lens implant was noted to center nicely within the capsular bag. The incisions were stromally hydrated, and the anterior chamber was reformed using BSS. Then 0.5cc of moxifloxacin 1.0mg/ml were injected into the capsular bag and anterior chamber. The incisions were checked with a Weck spear and found to be secure. Several drops of ophthalmic povidone-iodine 5% were then applied to the eye followed by two drops of combination steroid/NSAID/antibiotic solution. The drapes were removed and a clear plastic protective eye shield was placed over the eye. The patient was then returned to Same Day Surgery in stable condition.
[2023-10-12 08:54] VITALS: BP 146/58; PULSE 65; RESP 16; TEMP 36.7; O2SAT 98
--- NOTE | 2023-10-12 09:05 | W.ANESPOSTOP ---
Postoperative Evaluation Date, Time and Location Date Performed: 10/12/23 Time Performed: 08:54 Patient Location: Day Surgery Unit Vital Signs Most Recent Imported Vital Signs: Most Recent Vital Signs Temp Pulse Resp BP Pulse Ox 36.7 C 65 16 146/58 H 98 10/12/23 08:54 10/12/23 08:54 10/12/23 08:54 10/12/23 08:54 10/12/23 08:54 Pain Score Most Recent Pain Score: Most Recent Pain Score Pain Level 0 10/12/23 08:54 Assessment Mental Status: Awake (Alert & Oriented to Patient Baseline) Airway and Respiratory Function: Patent airway with normal (patient baseline) respiratory exam Cardiovascular Function: Hemodynamically Stable Hydration Status: Adequately Hydrated Nausea & Vomiting: No Nausea or Vomiting Pain: Pt. Denies Any Pain Peripheral Nerve Block: Patient did not receive a nerve block
== END 2023-10-12 09:13 | disposition home or self-care (01) ==
PROVIDERS: PCP Family Medicine; Visit Provider Ophthalmology
PROC: (CPT 66984; principal; 2023-10-12 08:15)
DX: H25.011 Cortical age-related cataract, right eye (principal); H25.11 Age-related nuclear cataract, right eye; Z98.42 Cataract extraction status, left eye; Z86.73 Personal history of transient ischemic attack (TIA), and cerebral infarction without residual deficits
CPT/HCPCS: 66984; 00123; V2632

== ENCOUNTER 2024-04-01 09:39 | Outpatient (REF) | payer MEDICARE, SELFPAY ==
--- OUTSIDE RECORDS SUMMARY | 2024-04-01 09:42 | XMS_ITS | Patient Health Record ---
Author Name [facility] Address [address] [place] [address] Care Team Providers Care Protective Signal Installer Helper Name Role Phone TORSTEN DALTON MD Primary Care Provider UnavailMerary Melton Unavailable [phone] REASON FOR REFERRAL No Information MEDICATIONS Medication [...] Chest pain (R07.9) Active confirmed Chest pain (66459740) Problem Hammertoe (M20.40) Active confirmed Hammer toe (855267729) Problem Insomnia (G47.00) Active confirmed Insomnia (787667047) Problem Memory loss (R41.3) Active confirmed Memory loss (72535569) Problem Rash (R21) Active confirmed Rash (75768 7003) Problem TIA (transient ischemic attack) (G45.9) Active confirmed Transient ische brandon attack (313691971) Problem Hip pain (M25.559) Active confirmed Hip pain (27725237) Problem Overweight (E66.3) Active confirmed Overweight (014262086) Problem Ankle fracture, left (S82.892A) Active confirmed Closed fract ure of ankle (47899023) Problem Joint swelling (M25.40) Active confirmed Joint swelling (193960477) Problem Easy bruising (R23.8) Active confirmed Easy bruising (412756455) Problem Hand numbness (R20.0) Active confirmed Skin sensation disturbance (75242321) Problem Malignant neoplasm of endometrium (C54.1) Active confirmed Malignant neopl asm of corpus uteri, excluding isthmus (523000476) Problem Diverticulosis of colon (K57.30) Active confirmed Diverticulosis of colon (067063784) Problem Elevated BP without diagnosis of hypertension (R03.0) Active confirmed Elevated blood pressure reading without diagnosis of hypertension (036278162) Problem Bunion of unspecified foot (M21.619) Active confirmed Swelling of fir st metatarsophalangeal joint of hallux (940929713) Problem Hammertoe of second toe of left foot (M20.42) Active confirmed 083321509 Problem Hammertoe of second toe of right foot (M20.41) Active confirmed 101064176 Problem Unspecified lump in the left breast, unspecified quadrant (N63.20) Active confirmed Lump in left br east (35279373624551740) Problem Lump of breast (N63.0) Active confirmed Breast lump (90211140) PLAN OF TREATMENT No Information Insurance Providers Payer Name Payer Address Payer Phone Subscriber Number Group Number Insured Name Patient Relationship to Insured Coverage Start Date Coverage End Date [employer] MEDICARE COMPLETE [address] [address] [place] [address] [id number] LINDA MOTA Self - patient is the insured SELF PAY [place] [address] [address] LINDA MOTA Self - patient is the [...]
[2024-04-01 15:36] LABS: HCT 39.1 % (36.0-46.0); HGB 12.6 g/dL (11.2-15.7); MCH 29.1 pg (27.0-33.0); MCHC 32.2 % (32.0-36.0); MCV 90 fL (80-95); MPV 10.9 fL (8.0-11.0); Platelet Count 415 10^3/uL (130-400); RBC 4.33 10^6/uL (3.93-5.22); RDW 12.9 % (11.7-14.6); RDW-SD 42.8 fL; WBC 9.73 10^3/uL (4.4-10.8)
[2024-04-01 16:19] LABS: Anion Gap 7.9 mmol/L (3-11); BUN 13 mg/dL (7-18); CO2 28.1 mmol/L (21.0-32.0); CREATININE 0.9 mg/dL (0.55-1.02); Calcium 9.3 mg/dL (8.5-10.1); Calculated LDL 138 mg/dL (<100); Chloride 103 mmol/L (98-107); Cholesterol 229 mg/dL (<200); Estimated GFR 63.43 (mL/min/1.73m2); Glucose 92 mg/dL (74-106); HDL Cholesterol 51 mg/dL (40-60); Potassium 4.1 mmol/L (3.5-5.1); Sodium 139 mmol/L (136-145); Triglyceride 200 mg/dL (<150)
== END 2024-04-01 09:40 | disposition home or self-care (01) ==
LOC: NCHCN 09:39
PROVIDERS: PCP Family Medicine; Visit Provider Family Medicine
DX: R03.0 Elevated blood-pressure reading, without diagnosis of hypertension (principal); R79.89 Other specified abnormal findings of blood chemistry; D75.838 Other thrombocytosis; Z00.00 Encounter for general adult medical examination without abnormal findings
CPT/HCPCS: 80048; 80061; 85027

== ENCOUNTER 2024-09-30 11:07 | Outpatient (REF) | payer MEDICARE, SELFPAY ==
--- OUTSIDE RECORDS SUMMARY | 2024-09-30 11:09 | XMS_ITS | Continuity of Care Document ---
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 Role Phone TORSTEN DALTON Primary Care Physician Encounter [facility]OR FIN NBR [id number] Date(s): 07/14/24 - 07/14/24 [facility] [address] [place], [place] [address] Encounter Diagnosis Skin lesion of right ear(Discharge Diagnosis) - 07/14/24 Screening for malignant neoplasm of skin(Discharge Diagnosis) - 07/14/24 AK (actinic keratosis)(Discharge Diagnosis) - 07/14/24 Discharge Disposition: Home or Self Care Attending Physician: Ashok Pink DO Referring Physician: TORSTEN DALTON Allergies, Adverse Reactions, Alerts No Known Medication Allergies Assessment and Plan Extracted from: Title:ENT-Office Visit Note Author:Ashok saldivar DO Date:07/14/24 1.??Skin lesion of right ear ??H61.91 Patient, her , and I discussed that the lesion could be treated with Efudex cream, and does not require biopsying at today's visit. Patient and her aware of instructions for use of the prescription, and was sent to their pharmacy of choice. 2.??Screening for malignant neoplasm of skin??Z12.83 3.??AK (actinic keratosis)??L57.0 Pictures taken, written instructions were reviewed, would like to see her back in 4 months,??primary lesion of the right mid??antihelix leading into the??conchal bowl Orders: Efudex 5% topical cream, 1 paige, Topical, BID, # 40 g, 0 Refill(s), Pharmacy: [facility] Medications Efudex 5% topical cream 1 paige, Topical, BID, # 40 g, 0 Refill(s), Pharmacy: [facility] Start Date: 07/14/24 Stop Date: 08/04/24 Status: Ordered loratadine 0 Refill(s) Start Date: 07/14/24 Status: Ordered memantine 0 Refill(s) Start Date: 07/14/24 Status: Ordered Vitamin B12 0 Refill(s) Start Date: 07/14/24 Status: Ordered Vitamin C 0 Refill(s) Start Date: 07/14/24 Status: Ordered Vitamin D3 0 Refill(s) Start Date: 07/14/24 Status: Ordered Problem List Condition Confirmation Course Effective Dates Status [facility] atus Informant Mass of left breast Confirmed Active Dementia Confirmed Active Family history of breast cancer Confirmed Active Physician Outpatient Note * Ashok Pink, DO: PERFORM Ashok Pink, DO: PERFORM, MODIFY Ashok Pink, DO: MODIFY, MODIFY, MODIFY, MODIFY Event Display: Office Clinic Note Physician Authored Date: [id number] LINDA MOTA :1940 Age:83 years Sex:Female Visit Date:07/14/2024 Primary Care Physician: TORSTEN DALTON Chief Complaint Skin lesion right ear History of Present Illness New patient in the office with referral for unspecified skin changes. Abnormal skin lesion of rightear. Patient states that the lesion has been present for a long time and does occasionally hurt when touched. Patient states that it is non healing, has bled once when a scab fell off. Patient deniesany personal or family history of skin cancer. Patient denies any other concerns at today's visit. ??She is with her today. Review of Systems Negative for: no new cardiac, respiratory, GI, , hematologic, neurologic, psychological, allergic, traumatic or endocrine problems except as listed above Physical Exam GENERAL APPEARANCE:??The patient is awake, alert, and oriented and in no acute distress, Appears nutritionally sound, Healthy in appearance, Voice is strong, with no stridor or stertor, Handling secretions without difficulty.?PSYCH:??affect normal, good eye contact, oriented to person, oriented to place, oriented to time.?NEURO:??CN's II-XII grossly intact, Gait is normal, The patient has endpoint nystagmus only.?HEENT:??The patient is normocephalic with a normal facies with cranial nerves 2 through 12 bilaterally equal and intact. Pupils are equal and reactive to light with extraocular movements bilaterally equal and intact. There is no proptosis or enophthalmos, ?NECK:??There is no palpable lymphadenopathy.?SKIN:??non healing lesion of right ear. ??Mid??antihelix leading to the consul bowl ?MUSCULOSKELETAL:??normal gait and station.?? Assessment/Plan 1.??Skin lesion of right ear??H61.91 Patient, her , and I discussed that the lesion could be treated with Efudex cream, and does not require biopsying at today's visit. Patient and her aware of instructions for use of theprescription, and was sent to their pharmacy of choice. 2.??Screening for malignant neoplasm of skin??Z12.83 3.??AK (actinic keratosis)??L57.0 Pictures taken, written instructions were reviewed, would like to see her back in 4 months,??primary lesion of the right mid??antihelix leading into the??conchal bowl Orders: Efudex 5% topical cream, 1 paige, Topical, BID, # 40 g, 0 Refill(s), Pharmacy: [facility] Future Orders 4 months, recheck??ear lesion Problem List/Past Medical History Ongoing Dementia Family history of breast cancer Mass of left breast Historical Family history of breast cyst Medications Efudex 5% topical cream, 1 paige, Topical, BID loratadine memantine Vitamin B12 Vitamin C Vitamin D3 Allergies No Known Medication Allergies Electronically Signed on 07/14/2024 15:56 EDT Ashok Pink DO Patient Care team information Care Team Personnel Name: TORSTEN DALTON Position: No Access Member Role: Primary Care Physician Address: [address] [place] [id number] Insurance Providers Guarantor name: LINDA MOTA Health Plan Information #: 1 Payer: MEDICARE [employer] Member Number: [id number] Policy Number: NA Health Plan Information #: 2 Payer: [employer] Member Number: [id number] Policy Number: NA
--- OUTSIDE RECORDS SUMMARY | 2024-09-30 11:10 | XMS_ITS | Patient Health Record ---
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 Phone TORSTEN DALTON MD Primary Care Provider Prabhua Merary Mckeon Unavailable [phone] REASON FOR REFERRAL No Information MEDICATIONS Medication [...] Chest pain (R07.9) Active confirmed Chest pain (22876241) Problem Hammertoe (M20.40) Active confirmed Hammer toe (222298368) Problem Insomnia (G47.00) Active confirmed Insomnia (902323032) Problem Memory loss (R41.3) Active confirmed Memory loss (78641679) Problem Rash (R21) Active confirmed Rash (77231 7003) Problem TIA (transient ischemic attack) (G45.9) Active confirmed Transient ische brandon attack (718249198) Problem Hip pain (M25.559) Active confirmed Hip pain (49500468) Problem Overweight (E66.3) Active confirmed Overweight (996379652) Problem Ankle fracture, left (S82.892A) Active confirmed Closed fract ure of ankle (35325169) Problem Joint swelling (M25.40) Active confirmed Joint swelling (406837387) Problem Easy bruising (R23.8) Active confirmed Easy bruising (713820324) Problem Hand numbness (R20.0) Active confirmed Skin sensation disturbance (83676263) Problem Malignant neoplasm of endometrium (C54.1) Active confirmed Malignant neopl asm of corpus uteri, excluding isthmus (600871384) Problem Diverticulosis of colon (K57.30) Active confirmed Diverticulosis of colon (272775904) Problem Elevated BP without diagnosis of hypertension (R03.0) Active confirmed Elevated blood pressure reading without diagnosis of hypertension (681819817) Problem Bunion of unspecified foot (M21.619) Active confirmed Swelling of fir st metatarsophalangeal joint of hallux (887639292) Problem Hammertoe of second toe of left foot (M20.42) Active confirmed 256178778 Problem Hammertoe of second toe of right foot (M20.41) Active confirmed 641334079 Problem Unspecified lump in the left breast, unspecified quadrant (N63.20) Active confirmed Lump in left br east (39276387919912401) Problem Lump of breast (N63.0) Active confirmed Breast lump (94769033) PLAN OF TREATMENT No Information Insurance Providers Payer Name Payer Address Payer Phone Subscriber Number Group Number Insured Name Patient Relationship to Insured Coverage Start Date Coverage End Date [employer] MEDICARE COMPLETE [address] [address] [place] [address] [id number] LINDA MOTA Self - patient is the insured SELF PAY AFTER [place] [address] [address] LINDA MOTA Self - patient is the [...]
--- OUTSIDE RECORDS SUMMARY | 2024-09-30 11:10 | XMS_ITS | Continuity of Care Document ---
Author Organization [facility] Address [address] [place] [address] Assessment No assessment recorded. Plan of Treatment Reminders Order Date Submit Date Provider Last Modified By Organization Details Last Modified Time Details Appointments Follow Up 30 2023 09:10A M TORSTEN CRUZ Not available Not available Not available Medicare Annual Wellness 40 2024 01:00P M TORSTEN CRUZ Not available Not available Not available Lab None recorded. Referral None recorded. Procedures None recorded. Surgeries None recorded. Imaging None recorded. Medication Orders None recorded. Patient TargetsNo targets recorded. Patient InstructionsNo instructions recorded. Reason for Referral None Reported. Results Created Date Observation Date Name Description Value Unit Range Abnormal Flag Note LastModifiedBy Organization Detail LastModifiedTime 06/30/20 24 08/07/2019 XR, hip No observ ation record ed. Not Available 06/30 03:53:30 06/30/20 24 07/06/2023 imagi ng/di agnos tic resul t No observ ation record ed. Not Available 06/30 03:53:31 06/30/20 24 12/04/2018 imagi ng/di agnos tic resul t No observ ation record ed. Not Available 06/30 03:53:35 06/30/20 24 10/06/2020 imagi ng/di agnos tic resul t No observ ation record ed. Not Available 06/30 03:53:37 06/30/20 24 01/16/2023 MAMMO , scree tiana No observ ation record ed. Not Available 06/30 03:53:38 06/30/20 24 08/06/2020 imagi ng/di agnos tic resul t No observ ation record ed. Not Available 06/30 03:53:54 06/30/20 24 01/19/2023 DEXA No observ ation record ed. Not Available 06/30 03:54:00 Result Notes None recorded. Problems Name Problem SNOMED Code Status Onset Date Resolution Date Notes Provider Name and Address Organization Details Recorded Time Chest pain 60496377 Active 2002 Problem Code: R07.9; Problem Code Type: ICD-10; Not Available [facility] 3 04:51:58 Elevated blood-pr essure reading without diagnosi s of hyperten celso 124961878 Active 200412/28/19 19 - Comments only - Sage altman Udupi - Blood pressure s have been fluctuat ing from 132/75 148/80 over the past several years, today s reading is a little higher. She is not interest ed in being on medicati on. She does continue to exercise regularl y. Advised her to periodic ally check her blood pressure . Goal is to keep the blood pressure less than 140/90 or less. Problem Code: R03.0; Problem Code Type: ICD-10; Not Available [facility] 3 04:51:58 Overweig ht 902807061 Active 2004 Problem Code: E66.3; Problem Code Type: ICD-10; Not Available [facility] 3 04:51:58 Breast lump 80914980 Active 200412/27/19 18 - Comments only - Torsten Cruz MD - , lt breast - likely fibrocys tic changes but obviousl y can't rule out a breast cancer. Kimberly wants to hold off on a mammo for now and states she will just monitor physical ly and let us know if there is a change or desire for a mammogra m Problem Code: N63; Problem Code Type: ICD-10; Not Available [facility] 3 04:51:58 Family history of breast cancer 579566681 Active 200405/28/20 20 - Comments only - Torsten Cruz MD - she will consider doing a mammo next year - had one in 2019 Problem Code: Z80.3; Problem Code Type: ICD-10; Not Available [facility] 3 04:51:58 Acquired absence of cervix and uterus 951659698 Active 1982 Problem Code: Z90.710; Problem Code Type: ICD-10; Not Available [facility] 3 04:51:58 Divertic ulosis of large intestin e 879482331 Active 2009 Problem Code: K57.30; Problem Code Type: ICD-10; Not Available [facility] 3 04:51:58 History of malignan t neoplasm of uterine body 866674142 Active 198209/05/20 21 - Comments only - Torsten Cruz MD - Status post TA H/BSO. Clinical ly no evidence of recurren ce. Of note she did have a recent abdomina l/pelvic CT for flank/ab dominal pain which was unremark able. Problem Code: Z85.42; Problem Code Type: ICD-10; Not Available [facility] 3 04:51:58 Gastroin testinal tract excision Active 2012 Problem Code: Z90.49; Problem Code Type: ICD-10; Not Available [facility] 3 04:51:59 Fracture of lower leg 827708819 Active 201210/05/20 15 - Comments only - Torsten Cruz MD - now with some arthriti c aches. She realizes there is not a specific tx. She uses ibuprofe n on rare occasion Problem Code: S82.892; Problem Code Type: ICD-10; Not Available [facility] 3 04:51:59 Transien t cerebral ischemia 548203427 Active 201203/31/20 23 - Comments only - Torsten Cruz MD - , Possible in 2015. She did have a head CT which showed atrophy, no evidence of prior infarct, carotid ultrasou nds without any definiti ve stenosis at the time. We could consider an MRI although not sure that alter future manageme nt. We will discuss with her at the next visit. Problem Code: G45.9; Problem Code Type: ICD-10; Not Available [facility] 3 04:51:59 Effusion of joint 470604724 Active 201410/05/20 15 - Comments only - Torsten Cruz MD - rt knee - she will let me or ortho know if this becomes painful. Problem Code: M25.40; Problem Code Type: ICD-10; Not Available [facility] 3 04:51:59 Adult health examinat ion Active 201405/28/20 20 - Comments only - Torsten Cruz MD - continui ng to lead a healthy lifestyl e. WIll check lipids, glucose, TSH. She has aged out of general preventa tive screenin g tests otherwis e. Problem Code: Z00.00; Problem Code Type: ICD-10; Not Available Replaced by [facility] 3 04:51:59 aRdhika valeriy 29816449 Active 2015 Problem Code: R20.2; Problem Code Type: ICD-10; Not Available [facility] 3 04:51:59 Localize d eruption of skin 525723933 Active 201612/28/19 19 - Comments only - Sage Slaughter - Continue applying the cortison e cream. Suggeste d her to apply Bag [place] to the affected area. Problem Code: R21; Problem Code Type: ICD-10; Not Available Replaced by [facility] 3 04:51:59 Cough 03924183 Completed 201711/10/2017 10/29/19 18 - Comments only - Tristan Andersen PA-C - Improved s/p ZITHROMA X. To continue on PREDNISO NE taper as RXD and suppleme nt PRN with ROBITUSS IN AC. Problem Code: R05; Problem Code Type: ICD-10; Not Available [facility] 3 04:52:00 Mass of left breast [id number] 890839 Active 2018 Problem Code: N63.20; Problem Code Type: ICD-10; Not Available [facility] 3 04:52:00 Hip pain 76333256 Active 2018 Problem Code: M25.559; Problem Code Type: ICD-10; Not Available [facility] 3 04:52:00 Insomnia 656078955 Active 2018 Problem Code: G47.00; Problem Code Type: ICD-10; Not Available [facility] 3 04:52:00 Aftercar e Active 201904/02/20 20 - Comments only - Yaquelin Moulton -Mazin [facility]- - - Reassure d pt area seems to be healing well - Advised her to continue to keep area clean, apply topical antibiot ic ointment for protecti on and moisture - Watch for increase d redness, edema, drainage , streakin g - Rx cephalex in 500mg po bid #14, 0 rf sent to Abhijit mccoy for pt to start if would worsens over weekend. - Call with any question s or concerns Problem Code: Z51.89; Problem Code Type: ICD-10; Not Available Replaced by [facility] 3 04:52:00 Bunion 518071061 Active 2019 Problem Code: M21.619; Problem Code Type: ICD-10; Not Available [facility] 3 04:52:00 Hammer toe 625648228 Active 201905/28/20 20 - Comments only - Torsten Cruz MD - and akil - she is amenable to a referral to podiatry for further evaluati on Problem Code: M20.40; Problem Code Type: ICD-10; Not Available Replaced by [facility] 3 04:52:00 Skin finding 256905696 Active 201905/28/20 20 - Comments only - Torsten Cruz MD - likely age related but will check a CBC Problem Code: R23.8; Problem Code Type: ICD-10; Not Available [facility] 3 04:52:00 Amnesia 65639203 Active 201905/28/20 20 - Comments only - Torsten Cruz MD - mild, difficul t to tell if due to hearing loss (not always hearing what her says) vs memory loss - will continue to monitor. She will let me know if worsenin g. Problem Code: R41.3; Problem Code Type: ICD-10; Not Available Replaced by [facility] 3 04:52:01 Pre-surg jacek evaluati on Completed 201908/20/2020 08/09/20 20 - Comments only - Tristan Andersen PA-C - Today's EKG shows NSR @ 65bpm. Assuming benign findings with today's requeste d laborato ry testing, patient is medicall y cleared to advance with surgery as schedule d. 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 No persiste nt abdomina l symptoms . Still gets some back pain. Problem Code: M48.10; Problem Code Type: ICD-10; Not Available [facility] 3 04:52:01 Right lower quadrant pain 958498947 Active 2020 Problem Code: R10.31; Problem Code Type: ICD-10; Not Available [facility] 3 04:52:02 Tremor 46581540 Active 202012/29/19 23 - Comments only - Torsten Cruz MD - And radhika vargas involvin g hands intermit tently. Neither is botherin g her signific antly at this juncture . Problem Code: G25.2; Problem Code Type: ICD-10; Not Available [facility] 3 04:52:02 Screenin g mammogra phy Active 2022 Problem Code: Z12.31; Problem Code Type: ICD-10; Not Available [facility] 3 04:52:03 Vitamin B deficien cy 06739780 Active 202212/29/19 23 - Comments only - Torsten Cruz MD - With a level of 190 a few years ago. She had been on B12 suppleme ntation, not sure why she stopped it. She is going to resume that. Problem Code: E53.8; Problem Code Type: ICD-10; Not Available [facility] 3 04:52:03 Adenocar cinoma of endometr ium 597501475 Completed 198207/11/2023 Not Available [facility] 3 04:52:03 Cholecys tectomy Completed 201207/11/2023 Not Available [facility] 3 04:52:04 Appendec jhoana Completed 201207/11/2023 Not Available [facility] 3 04:52:04 Swelling of limb 17632720 Completed 201407/11/2023 Not Available [facility] 3 04:52:04 Edema 369305099 Completed 201407/11/2023 Problem Code: R60.9; Problem Code Type: ICD-10; Not Available [facility] 3 04:52:04 Cataract 034359507 Active 2022 Melinda Gorman LPN [facility] 3 14:00:00 Arthralg ia of the ankle and/or foot 998161759 Active 2022 Problem Code: M25.572; Problem Code Type: ICD-10; Not Available [facility] 4 05:34:14 Disorder of joint of ankle and/or foot 100831148 Active 2022 Problem Code: M12.872; Problem Code Type: ICD-10; Not Available [facility] 4 05:34:14 Conjunct ivitis 7620053 Completed 202207/16/2023 Problem Code: H10.9; Problem Code Type: ICD-10; Not Available [facility] 4 05:34:23 Dementia 40775288 Active 2023 TORSTEN CRUZ MD [facility] [address], [place], [address] , [place] [facility] 4 08:11:18 Notes:*Problem Name: Borderl ine Htn *ICD-10 Codes: *Problem Status: inactive *Comments: *Note Date: 07/25/2005 *Problem Name: Benign Breast Tumo *ICD-10 Codes: *Problem Status: inactive *Comments: *Note Date: 07/25/2005 *Problem Name: Diverticulosis, Internal Hemorrhoids *ICD-10 Codes: *Problem Status: inactive *Comments: *Note Date: 05/24/2010 *Problem Name: H/o Possible Tia *ICD-10 Codes: *Problem Status: inactive *Comments: *Note Date: 08/22/2013 *Problem Name: Left Ankle Surgery *ICD-10 Codes: *Problem Status: inactive *Comments: *Note Date: 05/21/2013 *Problem Name: Normal Cath *ICD-10 Codes: *Problem Status: inactive *Comments: *Note Date: 06/12/2003 *Problem Name: Jason/bso - Cervix Absent *ICD- 10 Codes: *Problem Status: inactive *Comments: *Note Date: 07/25/1983 Problem Notes None recorded. Procedures Surgical History Date Name Laterality Status Provider Name and Address Organization Details Recorded Time 4 Cerumen Removal completed Sal Frye MA [facility] 04/01/2024 09:21:59 Imaging Results None recorded. Procedure Notes None recorded. Medical Equipment None Reported. Allergies No known drug allergies Medications Name Sig Start Date Stop Date Status Note LastModified by Organization Details LastModified Time Xanax 0.5 mg tablet 1 TAB three times daily 05/22 completed Not Available Not Available Not Available prednisone 10 mg tablet 6 po qd x 3d, 4 po qd x 3d, 2 po qd x 3d, 1 po qd x 3d, THEN STOP 11/03 completed Not Available Not Available Not Available azithromyci n 250 mg tablet Take 2 by mouth now, then take 1 by mouth daily x 4 days 10/27 completed Not Available Not Available Not Available aspirin 325 mg tablet take 1 tab daily 2015 active Not Available Not Available Not Avai lable simvastatin 10 mg tablet Take 1 tablet every day by oral route. 2023 active Not Available Not Available Not Avai lable Diflucan 150 mg tablet Take 1 tab by mouth now and then again in 1 week 10/22 completed Not Available Not Available Not Available Westcort 0.2 % topical cream JACK twice daily 02/01 completed Not Available Not Available Not Available tramadol 50 mg tablet 1 TAB daily 08/25 completed Not Available Not Available Not Available acetaminoph en 500 mg tablet Take 1 tab by mouth every 6 hours as needed 2020 active Not Available Not Available Not Avai lable triamcinolo ne acetonide 0.1 % topical cream Apply to affected area twice daily 12/27 completed Not Available Not Available Not Available amoxicillin 500 mg tablet 1 CAP twice daily 05/01 completed Not Available Not Available Not Available Efudex 5 % topical cream APPLY A SMALL AMOUNT TOPICALLY TWICE A DAY 2023 active Not Available Not Available Not Avai lable Guaiatussin AC 10 mg-100 mg/5 mL oral liquid Take 1-2 tsp by mouth every six hours as needed for cough 12/21 completed Not Available Not Available Not Available Lidoderm 5 % topical patch apply patch to low back for 12 hours per day then off for 12 hours 12/27 completed as per [facility] Not Available Not Available Not Available polymyxin B sulfate 10,000 unit-trimet hoprim 1 mg/mL eye drops INSTILL 1 DROP INTO AFFECTED EYE SIX TIMES A DAY FOR 1 WEEK 09/21 completed Not Available Not Available Not Available Robitussin A-C 10 mg-100 mg/5 mL oral syrup 5ML 05/16 completed Not Available Not Available Not Available ibuprofen 200 mg tablet Take 2 tablets by mouth three times daily as needed for pain 12/14 completed Not Available Not Available Not Available cephalexin 500 mg tablet Take 1 tab by mouth two times daily 05/27 completed Not Available Not Available Not Available Lotrimin AF (clotrimazo le) 1 % topical cream apply to areas on foot and abdomen bid until 1 week after rash appears to have resolved 10/22 completed Not Available Not Available Not Available Aspir-81 mg tablet,nilda yed release Take 1 by mouth daily 10/22 completed Not Available Not Available Not Available multivitami n capsule 1 tab daily 12/14 completed Not Available Not Available Not Available loratadine 10 mg tablet Take 1 tablet every day by oral route. 2023 active Not Available Not Available Not Avai lable Vitamin B-12 1,000 mcg tablet 1 tablet by mouth once a day active Not Available Not Available No t Available Augmentin 875 mg tablet 1 TAB BID 05/16 completed Not Available Not Available Not Available Flexeril 5 mg tablet 1 TAB twice daily 08/25 completed Not Available Not Available Not Available memantine 5 mg tablet Take 1 tablet by mouth twice a day 03/29 completed Not Available Not Available Not Available gabapentin 100 mg tablet 1CAP three times daily 01/22 completed Not Available Not Available Not Available Vitamin C 1000 MG DAILY active Not Available Not Available No t Available zoster vaccine live (PF) injection once 01/22 completed Not Available Not Available Not Available NAC 600 mg capsule Take 1 capsule by mouth twice a day 03/31 completed Not Available Not Available Not Available Vitamin D3 50 mcg (2,000 unit) tablet Take 1 tablet by mouth once a day 2022 active Not Available Not Available Not Avai lable memantine 14 mg capsule sprinkle,ex tended release 24hr 1 tablet daily 09/30 completed Not Available Not Available Not Available memantine 21 mg capsule sprinkle,ex tended release 24hr Take 1 capsule every day by oral route. 2023 active Not Available Not Available Not Avai lable Vitals None Recorded Social History Question Answer Notes LastModified by Organizat ion Details LastModified Time Tobacco Smoking Status Never Smoker Sal Frye MA null, [place] - [facility]. 04/01/2024 08:03:11 What Was The Date Of Your Most Recent Tobacco Screening? 04/01/2024 [email or web address] Information not available 04/01/2024 Do You Or Have You Ever Used Any Other Forms Of Tobacco Or Nicotine? No Information not available 04/01/2024 Sex: Female Functional Status None recorded. Mental Status None recorded. Family History Relationship Description Onset Age of this Age Resolved Age Notes LastModified by Organization Details LastModified Time Brother Family history of premature coronary heart disease [email or web address] Not available 2022 03:50:01 Brother Family history of malignant neoplasm THROAT CA x 1, BRAIN CA Not available 08/24/2023 03:50:07 Sister Family history of premature coronary heart disease S/P PACEMA KER Not available 08/24/2023 03:50:02 Sister Family history of breast cancer [email or web address] Not available 2022 03:50:09 Father Family history of malignant neoplasm LIVER [email or web address] Not available 2022 03:50:07 Mother Family history of breast cancer [email or web address] Not available 2022 03:50:09 Notes:*Problem: SONS X 2 - L &W without ongoing medical issues DAUGHTERS x 2 - L&W without ongoing medical issues 12 grandkids, 24 great grandkids Mom at 53 from breast CA Dad at 47 from liver CA Has had 2 nieces diagnosed with breast CA One grandmother was 83 at time of , the other 76. Grandfather's both before she was born Medical History No medical history recorded. Gynecological HistoryNo gynecological history recorded. Obstetrics History GPAL:G 0 P 0 0 0 0 Immunizations Vaccine Type Date Status Note Provider Nam e and Address Organization Details Recorded Time COVID-19, mRNA, LNP-S, PF, leidy-sucrose, 30 mcg/0.3 mL 4 completed Evy arita, [facility] 07/30/2024 15:36:58 Influenza, high-dose, trivalent, PF 4 completed Evy arita, [facility] 07/30/2024 15:36:58 Tdap 5 completed Not Available [facility] 08/24/2023 05:25:35 zoster live 7 completed Not Available [facility] 08/24/2023 05:25:35 Pneumococcal conjugate PCV 13 7 completed Not Available [facility] 08/24/2023 05:25:36 Influenza, high-dose, trivalent, PF 9 completed Not Available [facility] 08/24/2023 05:25:36 Td(adult) unspecified formulation 5 completed Not Available [facility] 08/24/2023 05:25:36 Influenza, high-dose, quadrivalent, PF 0 completed Not Available [facility] 08/24/2023 05:25:36 Influenza, high-dose, quadrivalent, PF 1 completed Not Available Replaced by [facility] 08/24/2023 05:25:36 COVID-19, mRNA, LNP-S, PF, 100 mcg/0.5mL dose or 50 mcg/0.25mL dose 1 completed Not Available Replaced by [facility] 08/24/2023 05:25:36 COVID-19, mRNA, LNP-S, PF, 100 mcg/0.5mL dose or 50 mcg/0.25mL dose 1 completed Not Available Replaced by [facility] 08/24/2023 05:25:36 SARS-COV-2 (COVID-19) vaccine, UNSPECIFIED 1 completed Not Available Replaced by [facility] 08/24/2023 05:25:36 pneumococcal polysaccharide PPV23 5 completed Not Available [facility] 08/24/2023 05:25:36 pneumococcal polysaccharide PPV23 5 completed Not Available Replaced by [facility] 08/24/2023 05:25:36 influenza, unspecified formulation 2 completed Not Available Replaced by [facility] 08/24/2023 05:25:37 Influenza, high-dose, quadrivalent, PF 3 completed Not Available Replaced by [facility] 10/26/2023 05:31:16 COVID-19, mRNA, LNP-S, PF, leidy-sucrose, 30 mcg/0.3 mL [address] completed [address] Fry[address] MA [facility], [place] - [facility]. 11/07/2023 11:15:39 Past Encounters Encounter ID Performer Location Encounter Start Date Encounter Closed Date Diagnosis/Indication Diagnosis SNOMED-CT Code Diagnosis ICD10 Code [id number] Evy Matute [facility] [address] [place] [address] 07/30/2024 14:51:36 07/30/2024 15:49:14 Active or passive immunization [id number] Z23 Health Concerns Section Related Observation LastModified by Organization Detai ls LastModified Time None Recorded Concern Status LastModified by Organization Details LastModified Time None Recorded Payers Encounter Date Sequence Insurance Name Policy Number Policy Garnica Covered Member ID Garnica Member ID Guarantor Name 07/30/2024 1 [place]ARE [place] [employer] Kimberly Howell [id number] Kimberly Howell OBGyn Episode No OBEpisode recorded.
--- OUTSIDE RECORDS SUMMARY | 2024-09-30 11:10 | XMS_ITS | Encounter Summary ---
[place] [address] Care Team Providers Care Sustainability Engineer Name Role Phone Kaykay Cruz MD Primary Care Provider Encounter Details Date Type Department Care Team (Latest Contact Info) Description 08/19/2020 9:38 PM EST - 08/19/2020 11:59 PM EST [place] [id number] Discharge Disposition: Home Social History Tobacco Use Types Packs/Day Years Used Date Smoking Tobacco: Never Assessed Sex and Gender Information Value Date Recorded Sex Assigned at Not on file Gender Identity Not on file Sexual Orientation Not on file documented as of this encounter Medications at Time of Discharge Medication Sig Dispensed Refills Start Date End Date CIS Free Text Med - Calcium + D 06/06/2006 multivitamin (DAILY MULTIPLE) tablet 06/06/2006 nitroGLYcerin (NITROSTAT) 0.4 mg SL tablet 06/06/2006 naproxen (NAPROSYN) 500 mg tablet 500MG = 1 Tablet(s), PO, Twice daily 06/06/2006 cyclobenzaprine (FLEXERIL) 10 mg tablet 10MG = 1 Tablet(s), PO, QHS 06/06/2006 documented as of this encounter Plan of Treatment Not on file documented as of this encounter Procedures Procedure Name Priority Date/Time Associated Diagnosis Comments SURGICAL PATHOLOGY REPORT Routine 08/19/2020 5:30 AM EST documented in this encounter Results * Surgical Pathology Report (08/19/2020 5:30 AM EST) Final Diagnosis [id number] ? Location: [facility] The signing pathologist has (i) examined the relevant preparation(s) for the specimen(s) and (ii) rendered or confirmed the diagnosis(es). . ?Surgical Pathology DIAGNOSIS A - Hammertoe, right second digit Gross surgical pathology examination. Electronically signed by: ??Alfonso WATSON, Gurinder Leyva Verified: ??08/24/2020 ?Dermatopatholog ist, Bone & Soft Tissue Pathologist Performed at: ??[facility] Dept. of Pathology, [place], [place] SPECIMEN(S) SUBMITTED A - Right second toe (1) Referring Identifier: ??[id number] Report to: (not provided) CLINICAL INFORMATION Dislocated right second toe, hammertoe SPECIMEN PROCESSING A - Labeled/Fixative: Right second toe, fresh. Quantity/Size: ??Single, 5.8 x 1.5 x 1.5 cm Tissue Description: Disarticulated digit with a hammertoe deformity. Lesion: No gross lesions. Nail: Unremarkable. Skin: Richter-pink, unremarkable. Bone: ??Richter-yellow, unremarkable. Sections/Processi ng: No sections submitted, gross diagnosis only ??ajw 08/24/2020 7:20 AM EST [facility] TOE STRUCTURE / Unknown 08/19/2020 5:30 AM EST 08/19/2020 5:30 AM EST Narrative Resulting Agency Comment Spec In Lab / WKS Merary Loco DPM PATHOLOGY/CYTOLOGY O RDERABLES [facility] [place] [address] documented in this encounter Visit Diagnoses Not on filedocumented in this encounter Care Teams Sustainability Engineer Relationship Specialty Start Date End Date Kaykay Cruz MD [address] [place], [place] [id number] PCP - General Family Medicine 11/04/15 documented as of this encounter
--- OUTSIDE RECORDS SUMMARY | 2024-09-30 11:10 | XMS_ITS | Data Portability ---
Author Organization [place] - [facility] Address [address] [place] [address] Assessment Encounter Date Assessment Date Assessment LastModified by Organization Details LastModified Time 09/21/2023 09/21/2023 Patient presents for pre-op evaluation. History and physical exam indicate: medically stable 82 year old with memory deficit. Patient presents for pre-op evaluation. The patient is a suitable candidate for the planned procedure. Their chronic medical problems are optimized Further preoperative evaluation is not needed. [facility] Not available 09/21/2023 15:09:43 Plan of Treatment Reminders Order Date Submit Date Provider Last Modified By Organization Details Last Modified Time Details Appointments Follow Up 30 2023 09:10A M KAYKAY DALTON Not available Not available Not available Medicare Annual Wellness 40 2024 01:00P M KAYKAY DALTON Not available Not available Not available Lab BMP, serum or plasma 2023 024 [facility] ([facility] ), [address] [place] [address] [place], [address], 04/01/2024 13:07:52 lipid panel, serum 2023 024 ti [facility] (Registration ), [address] [place] [address] [place], [address], 04/01/2024 13:07:52 CBC 2023 024 BELINDA [facility] (Registration ), [address] [place] [address] [place], [address], 04/01/2024 15:54:09 Referral ENT surgery referral 2023 024 [facility], [address], [address], [place], [address], 07/14/2024 22:38:31 Procedures None recorded. Surgeries None recorded. Imaging None recorded. Medication Orders memantine 21 mg capsule sprinkle, extended release 24hr 2023 024 [facility], [address] [place] [address], [address], [place], [address], 04/06/2024 19:16:58 Patient TargetsNo targets recorded. Patient InstructionsNo instructions recorded. Reason for Referral ENT Surgery Referral for Ski n finding Apryl Preciado for abnormal skin lesion rt ear Referring Physician: Kaykay Dalton, Family Medicine, Encounter Date: 04/01/2024 Results Created Date Observation Date Name Description Value Unit Range Abnormal Flag Note LastModifiedBy Organization Detail LastModifiedTime 04/01/2004/01/2024 COMPL ETE BLOOD COUNT NO DIFF WBC 9.73 10_3/ uL 4.4-10 .8 normal Not Available [address] [place], [address] 04/01/2024 15:54:09 04/01/20 24 04/01/2024 COMPL ETE BLOOD COUNT NO DIFF RBC 4.33 10_6/ uL 3.93-5 .22 normal Not Available [address] [place], [address] 04/01/2024 15:54:09 04/01/20 24 04/01/2024 COMPL ETE BLOOD COUNT NO DIFF HGB 12.6 g/dL 11.2-1 5.7 normal Not Available [address] [place], [address] 04/01/2024 15:54:09 04/01/20 24 04/01/2024 COMPL ETE BLOOD COUNT NO DIFF HCT 39.1 % 36.0-4 6.0 normal Not Available [address] [place], [address] 04/01/2024 15:54:09 04/01/20 24 04/01/2024 COMPL ETE BLOOD COUNT NO DIFF MCV 90 fL 80-95 normal Not Available Fred valero [address], [address] 04/01/2024 15:54:09 04/01/20 24 04/01/2024 COMPL ETE BLOOD COUNT NO DIFF MCH 29.1 pg 27.0-3 3.0 normal Not Available [address] [place], [address] 04/01/2024 15:54:09 04/01/20 24 04/01/2024 COMPL ETE BLOOD COUNT NO DIFF MCHC 32.2 % 32.0-3 6.0 normal Not Available [address] [place], [address] 04/01/2024 15:54:09 04/01/20 24 04/01/2024 COMPL ETE BLOOD COUNT NO DIFF RDW 12.9 % 11.7-1 4.6 normal Not Available [address] [place], [address] 04/01/2024 15:54:09 04/01/20 24 04/01/2024 COMPL ETE BLOOD COUNT NO DIFF platelet count 415 10_3/ uL 130-40 0 high Not Available [address] [place], [address] 04/01/2024 15:54:09 04/01/20 24 04/01/2024 COMPL ETE BLOOD COUNT NO DIFF MPV 10.9 fL 8.0-11 .0 normal Not Available [address] [place], [address] 04/01/2024 15:54:09 04/01/20 24 04/01/2024 BASIC METAB OLIC PANEL calcium 9.3 mg/dL 8.5-10 .1 normal Not Available [address] [place], [address] 04/01/2024 16:21:14 04/01/20 24 04/01/2024 BASIC METAB OLIC PANEL glucose 92 mg/dL 74-106 normal Not Available Fred valero [address] [place], [address] 04/01/2024 16:21:14 04/01/20 24 04/01/2024 BASIC METAB OLIC PANEL BUN 13 mg/dL 7-18 normal Not Available Fred valero [address] [place], [address] 04/01/2024 16:21:14 04/01/20 24 04/01/2024 BASIC METAB OLIC PANEL creatinine 0.9 mg/dL 0.55-1 .02 normal Not Available [address] [place], [address] 04/01/2024 16:21:14 04/01/20 24 04/01/2024 BASIC METAB OLIC PANEL estimated GFR 63.43 mL/min /1.73m 2 The eGFR is calcu lated from a serum creat inine using the CKD-E PI 2020 equat ion. Other varia bles requi red for the equat ion are gende r and age; this equat ion does not inclu de a race coeff icien t. This equat ion has simil ar overa ll perfo rmanc e to previ ous equat ions excep t value s may diffe r, in parti cular , in patie nts with highe r value s of eGFR and young er-ag ed adult s. Not Available [address] [place], [address] 04/01/2024 16:21:14 04/01/20 24 04/01/2024 BASIC METAB OLIC PANEL sodium 139 mmol/ L 136-14 5 normal Not Available [address] [place], [address] 04/01/2024 16:21:14 04/01/20 24 04/01/2024 BASIC METAB OLIC PANEL potassium 4.1 mmol/ L 3.5-5. 1 normal Not Available [address] [place], [address] 04/01/2024 16:21:14 04/01/20 24 04/01/2024 BASIC METAB OLIC PANEL chloride 103 mmol/ L 98-107 normal Not Available [address] [place], [address] 04/01/2024 16:21:14 04/01/20 24 04/01/2024 BASIC METAB OLIC PANEL CO2 28.1 mmol/ L 21.0-3 2.0 normal Not Available [address] [place], [address] 04/01/2024 16:21:14 04/01/20 24 04/01/2024 BASIC METAB OLIC PANEL anion gap 7.9 mmol/ L 3-11 normal Not Available [address] [place], [address] 04/01/2024 16:21:14 04/01/20 24 04/01/2024 LIPID 2 cholesterol 229 mg/dL <200 high Not Available [address] [place], [address] 04/01/2024 16:21:15 04/01/20 24 04/01/2024 LIPID 2 triglyceride 200 mg/dL <150 high Not Available [address] [place], [address] 04/01/2024 16:21:15 04/01/20 24 04/01/2024 LIPID 2 HDL cholesterol 51 mg/dL 40-60 Not Available [address] [place], [address] 04/01/2024 16:21:15 04/01/20 24 04/01/2024 LIPID 2 calculated LDL 138 mg/dL <100 high Natio nal Tyra stero l Educa tion Progr am (NCEP -ATPI II) class ifica tions : Tyra stero l <200 mg/dL Gerry able Tyra stero l 200-2 39 mg/dL Borde rline High Tyra stero l >or=2 40 mg/dL High HDL <40 mg/dL Low HDL >or=6 0 mg/dL High LDL <100 mg/dL Optim al LDL 100-1 29 mg/dL Near Optim al/Ab ove Optim al LDL 130-1 59 mg/dL Borde rline High LDL 160-1 89 mg/dL High LDL >or=1 90 mg/dL Very High *The above refer ence range is for adult s 18 years or older . Not Available [address] [place], [address] 04/01/2024 16:21:15 09/28/20 23 09/28/2023 physi rocio dsu disch arge repor t PHYSIC CATHERINE DSU DISCHA RGE REPORT PATIEN T NAME: David Renteria UNIT #: [id number] ADMITT ING PROVID ER: Paz Adams M.D. ACCOUN T #: [id number] PRIMAR Y CARE PROVID ER: KAYKAY BLANCHARD MD DATE OF ADMIT: : 1940 Date of servic e: Time of Servic e: 10:04 Discha rge Plan Dispos ition Patien t Dispos ition: Home Discha rge Detail s Attend ing Provid er: Paz Adams Primar y Care Provid er: Callie Blanchard V Home Meds and New Rx's Prescr iption s: No Action aspiri n 81 mg tablet ,delay ed releas e (DR/EC ) 81 mg PO DAILY cholec alcife rol (vitam in D3) 50 mcg (2,000 unit) capsul e 50 mcg PO DAILY mecoba ethan (vitam in B12) 1,000 mcg tablet ,disin tegrat ing 1,000 mcg sublin gual DAILY Rx Instru ctions : place tablet under tongue and allow to dissol ve for at least3 0 secs before swallo wing acetam inophe n 500 mg tablet 500 mg PO Q6H PRN memant ine 14 mg capsul e,spri nkle,E R 24hr 14 mg PO DAILY aspiri n 325 MG tablet ,delay ed releas e (DR/EC ) 325 mg PO DAILY Qty: 100 0RF ascorb ic acid (vitam in C) [C-100 0] 1,000 mg tablet 1 g PO DAILY Discha rge Instru ctions Stand Alone Forms: Post-o p Topica l Catara ct, Nico Cain ([facility]U) Discha rge Orders Discha rge Orders : Discha rge Order (Sintia thomas); Ordere d Ordere d By: Tanya Adams DS: Diagno sis Discha rge Diagno sis (1) 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 Any use or distri bution by any person other than this provid er is strict ly prohib ited. If you receiv e this report in error, please notify us immedi ramsesly at and return the origin al report to us at the addres s above. Thank you. [facility] [address], [place], [address] 09/28/2023 12:57:05 09/28/20 23 09/28/2023 repor t of opera tion REPORT OF OPERAT ION PATIEN T NAME: David Renteria UNIT #: [id number] ADMITT ING PROVID ER: Paz Adams M.D. ACCOUN T #: [id number] PRIMAR Y CARE PROVID ER: PATSY Mccoy MD, KAYKAY DATE OF ADMIT: : 1940 Date of servic e: Time of Servic e: 10:05 Operat lucita Note Operat lucita Note DATE OF PROCED URE: PRE-OP DIAGNO SIS: Nuclea r/rik ical catara ct, left eye POST-O P DIAGNO SIS: same PROCED URE: Catara ct extrac tion using phacoe mulsif icatio n with intrao cular lens implan t, left eye SURGEO N: Tanya Adams ANESTH ESIA TYPE: Local By Surgeo n and MAC Refer to Anesth esia Record PATHOL OGY: none sent COMPLI CATION S: None [facility] was transp orted to: same day [facility] bridges's condit ion: stable Implan ts: Davidson Clareo n CCA0T0 Indica tions: Progre ssive decrea sed vision due to catara ct, left eye Proced ure Descri ption: CATARA CT SURGER Y OPERAT LUCITA REPORT PREOPE RATIVE DIAGNO SIS: Nuclea r/rik ical catara ct, left eye POSTOP ERATIV E DIAGNO SIS: Same OPERAT ION: Catara ct extrac tion using phacoe mulsif icatio n with media services director ior chambe r intrao cular lens implan t, left eye. IOL: IOL Manufa cturer /Model : Davidson Clareo n [id number] IOL Power: + 22.0 diopte rs IOL Serial Number : [id number] Optic Diamet er: 6.0mm Haptic /Overa ll Diamet er: 13.0mm PHACO INFO: Davidson Vitalbox - Improved Affordable Healthcareur ion Vision System with OZil and Active Fluidi cs Cumula tive Disper sed Energy (CDE): 13.88 second s SURGEO N: Tanya Adams MD, ERICK ANESTH ESIA: Monito red Anesth esia Care (MAC), with local sub-te non's anesth etic infilt ration COMPLI CATION S: None SPECIM ENS: None INDICA TIONS FOR PROCED URE: The marium bridges is an 82-yea r-old lady with histor y of dimini shed visual acuity in her left eye second james to the develo pment of nuclea r/rik ical catara ct. She is signif icantl y sympto matic that she desire s catara ct surger y and attemp t to improv e and maximi ze her vision . The option of catara ct surger y was offere d to the marium bridges and she wished to procee d. See office notes for detail ed inform ation. PROCED URE: The correc t surgic al eye was identi fied and marked as the left eye and the pupil was dilate d in the preope rative area using mydria tics and cyclop legics . The dilate d pupil size was 6.0 mm. The patien t electe d to procee d withou t oral sedati on. The patien t was jimbo t to the operat ing room where cardio pulmon james monito ring was instit uted and surgic al time-o ut was perfor med, confir calvin the correc t operat lucita eye and IOL power. Topica l anesth esia was admini stered and ophtha lmic povido ne-iod ine 5% was instil led into the conjun ctival fornic es. The radha-o cular area was preppe d with Betadi ne 10% soluti on and draped in the usual steril e fashio n for intrao cular surger y, includ ing an apertu re drape. A Tegade rm transp arent film dressi ng was cut in half and used to cover the lashes and lid margin s. Care was taken to seques ter the lashes and lid margin s under the Tegade rm dressi ng. A lid specul um was placed betwee n the lids of the operat lucita eye and the Davidson LuxOR Revali a operat ing micros cope was maneuv ered into positi on. [place] tt scisso rs were then used to make a conjun ctival button hole approx imatel y 6mm media services director ior to the limbus in the infero nasal quadra nt. Blunt dissec tion was shonda d out to expose bare sclera , and a blunt- tipped sub-te non??? s anesth esia cannul a was introd uced and passed media services director iorly along the globe where non-pr eserve d plain lidoca ine was inject ed into media services director ior sub-Te non??? s space. A sidepo rt knife was used to make a parace ntesis port. Intrao cular phenyl ephrin e/lido debbie was inject ed into the anteri or chambe r. The anteri or chambe r was then filled with viscoe lastic . A kerato me knife was used constr uct a two-pl ane clear cornea l tunnel extend ing 2.0mm into clear cornea . A flap was raised on the anteri or capsul e and capsul orhexi s forcep s were used to comple te a contin uous curvil inear capsul orhexi s of 5.0 mm. Balanc ed salt soluti on was then used to perfor m cortic al cleavi ng hydrod issect ion and nuclea r hydrod elinea tion until the lens could be freely rotate d within the capsul ar bag. The lens nucleu s was then disass embled and remove d within the capsul ar bag and iris plane using phacoe mulsif icatio n. Residu al cortic al materi al was remove d using the irriga tion/a spirat ion handpi gadiel. The media services director ior capsul e was carefu lly sing[place]an ed to remove as much residu al lens epithe lial cells as safely possib le. The capsul ar bag was then inflat ed and the anteri or chambe r deepen ed with viscoe lastic . The lens implan t descri bed above was insert ed into the capsul ar bag using the Davidson Autono me Inject or. A Kuglen hook was used to dial the IOL into positi on. Residu al viscoe lastic was then remove d first from media services director ior to the IOL, then from the anteri or chambe r using the I/A handpi gadiel. The lens implan t was noted to center nicely within the capsul ar bag. The incisi ons were stroma lly hydrat ed, and the anteri or chambe r was reform ed using BSS. Then 0.5cc of moxifl oxacin 1.0mg/ ml were inject ed into the capsul ar bag and anteri or chambe r. The incisi ons were checke d with a Weck spear and found to be secure . Severa l drops of ophtha lmic povido ne-iod ine 5% were then applie d to the eye follow ed by two drops of Imprim is combin ation predni solone /moxif loxaci n/nepa fenac soluti on. The drapes were remove d and a clear plasti c protec tive eye shield was placed over the eye. The patien t was then return ed to Same Day Surger y in stable condit ion. cc: PATSY Mccoy MD, KAYKAY ------ ------ ------ ------ ------ ------ ------ ------ ------ ------ ------ --- Dictat ed by: TANYA ADAMS MD Dictat ed: Time: 10 05 Date: 100 7 Date: Date: Transc ribed Date: Transc ribed Time: 1004 By: LORENE This is privil eged, confid ential inform ation, intend ed only for the provid er named. Any use or distri bution by any person other than this provid er is strict ly prohib ited. If you receiv e this rep ort in error, please notify us immedi ramsesly at and return the origin al report to us at the addres s above. Thank you. [facility] [address], [place], [address] 09/28/2023 12:57:06 10/12/20 23 10/12/2023 physi rocio dsu disch arge repor t PHYSIC CATHERINE DSU DISCHA RGE REPORT PATIEN T NAME: David Renteria UNIT #: [id number] ADMITT ING PROVID ER: Paz Adams M.D. ACCOUN T #: [id number] PRIMAR Y CARE PROVID ER: KAYKAY BLANCHARD MD DATE OF ADMIT: : 1940 Date of servic e: Time of Servic e: 08:46 Discha rge Plan Dispos ition Patien t Dispos ition: Home Discha rge Detail s Attend ing Provid er: Paz Adams Primar y Care Provid er: Callie Blanchard V Home Meds and New Rx's Prescr iption s: No Action cholec alcife rol (vitam in D3) 50 mcg (2,000 unit) capsul e 50 mcg PO DAILY mecoba ethan (vitam in B12) 1,000 mcg tablet ,disin tegrat ing 1,000 mcg sublin gual DAILY Rx Instru ctions : place tablet under tongue and allow to dissol ve for at least3 0 secs before swallo wing acetam inophe n 500 mg tablet 500 mg PO Q6H PRN memant ine 14 mg capsul e,spri nkle,E R 24hr 14 mg PO DAILY ascorb ic acid (vitam in C) [C-100 0] 1,000 mg tablet 1 g PO DAILY Discha rge Instru ctions Stand Alone Forms: DSU Post-O p Catara ct Discha rge Orders Discha rge Orders : Discha rge Order (Sintia thomas); Ordere d Ordere d By: Tanya Adams DS: Diagno sis Discha rge Diagno sis (1) Cortic al age-re lated catara ct, right eye: Status : Resolv ed (2) Nuclea r age-re lated catara ct, right eye: Status : Resolv ed cc: ------ ------ ------ ------ ------ ------ ------ ------ ------ ------ ------ --- Dictat ed by: BRYAN WATSON, TANYA Mccoy Dictat ed: Time: Date: 084 6 Date: Date: Transc ribed Date: Transc ribed Time: 845 By: LORENE This is privil eged, confid ential inform ation, intend ed only for the provid er named. Any use or distri bution by any person other than this provid er is strict ly prohib ited. If you receiv e this report in error, please notify us immedi ately at [phone] and return the origin al report to us at the addres s above. Thank you. ti [address] [place], [address] 10/12/2023 10:18:40 10/12/20 23 10/12/2023 [facility] of opera tion REPORT OF OPERAT ION PATIEN T NAME: David Renteria UNIT #: [id number] ADMITT ING PROVID ER: Paz Adams M.D. ACCOUN T #: [id number] PRIMAR Y CARE PROVID ER: PATSY Mccoy MD, KAYKAY DATE OF ADMIT: : 1940 Date of servic e: Time of Servic e: 08:46 Operat lucita Note Operat lucita Note DATE OF PROCED URE: PRE-OP DIAGNO SIS: Nuclea r/rik ical catara ct, right eye POST-O P DIAGNO SIS: same PROCED URE: Catara ct extrac tion using phacoe mulsif icatio n with intrao cular lens implan t, right eye SURGEO N: Tanya Adams ANESTH ESIA TYPE: Local By Surgeo n and MAC Refer to Anesth esia Record ESTIMA VANDANA BLOOD LOSS: 0 PATHOL OGY: none sent COMPLI CATION S: None Patien t was transp orted to: same day Patien t's condit ion: stable Implan ts: Davidson Clareo n CCA0T0 Indica tions: Progre ssive decrea sed vision due to catara ct, right eye Proced ure Descri ption: CATARA CT SURGER Y OPERAT LUCITA REPORT PREOPE RATIVE DIAGNO SIS: Nuclea r/rik ical catara ct, right eye POSTOP ERATIV E DIAGNO SIS: Same OPERAT ION: Catara ct extrac tion using phacoe mulsif icatio n with media services director ior chambe r intrao cular lens implan t, right eye. IOL: IOL Manufa cturer /Model : Davidson Clareo n [id number] IOL Power: + 22.0 diopte rs IOL Serial Number : [id number] Optic Diamet er: 6.0mm Haptic /Overa ll Diamet er: 13.0mm PHACO INFO: Davidson Centur ion Vision System with OZil and Active Fluidi cs Cumula tive Disper sed Energy (CDE): 10.09 second s SURGEO N: Tanya Adams MD, ERICK ANESTH ESIA: Monito red Anesth esia Care (MAC), with local sub-te non's anesth etic infilt ration COMPLI CATION S: None SPECIM ENS: None INDICA TIONS FOR PROCED URE: The marium bridges is an 82-yea r-old lady with histor y of dimini shed visual acuity in both eyes second james to the develo pment of bilate ral nuclea r/rik ical catara ct. She is signif icantl y sympto matic that she desire s catara ct surger y and attemp t to improv e and maximi ze her vision . She has alread y underg one catara ct surger y in the left eye and is doing well postop erativ jackie. She now presen ts for catara ct surger y in the right eye. See office notes for detail ed inform ation. PROCED URE: The [facility] surgic al eye was identi fied and marked as the right eye and the pupil was dilate d in the preope rative area using mydria tics and cyclop legics . The dilate d pupil size was 6.0 mm. The [facility] bridges electe d to procee d withou t oral sedati on. The [facility] bridges was jimbo t to the operat ing room where cardio pulmon james monito ring was instit uted and surgic al time-o ut was perfor med, confir calvin the karlo t operat lucita eye and IOL power. Topica l anesth esia was admini stered and ophtha lmic povido ne-iod ine 5% was instil led into the conjun ctival fornic es. The radha-o cular area was preppe d with Betadi ne 10% soluti on and draped in the usual steril e fashio n for intrao cular surger y, includ ing an apertu re drape. A Tegade rm transp arent film dressi ng was cut in half and used to cover the lashes and lid margin s. Care was taken to seques ter the lashes and lid margin s under the Tegade rm dressi ng. A lid specul um was placed betwee n the lids of the operat lucita eye and the Jennifer-S treit operat ing micros cope was maneuv ered into positi on. [place] tt scisso rs were then used to make a conjun ctival button hole approx imatel y 6mm media services director ior to the limbus in the infero nasal quadra nt. Blunt dissec tion was shonda d out to expose bare sclera , and a blunt- tipped sub-te non??? s anesth adrian altman was introd uced and passed media services director iorly along the globe where non-pr eserve d plain lidoca ine was inject ed into media services director ior sub-Te non??? s space. A sidepo rt knife was used to make a parace ntesis port. Intrao cular phenyl ephrin e/lido debbie was inject ed into the anteri or chambe r. The anteri or chambe r was then filled with viscoe lastic . A kerato me knife was used to constr uct a two--p olga clear cornea l tunnel extend ing 2.0mm into clear cornea . A flap was raised on the anteri or capsul e and capsul orhexi s forcep s were used to comple te a contin uous curvil inear capsul orhexi s of 5.0 mm. Balanc ed salt soluti on was then used to perfor m cortic al cleavi ng hydrod issect ion and nuclea r hydrod elinea tion until the lens could be freely rotate d within the capsul ar bag. The lens nucleu s was then disass embled and remove d within the capsul ar bag and iris plane using phacoe mulsif icatio n. Residu al cortic al materi al was remove d using the I/A handpi gadiel. The media services director ior capsul e was carefu lly [place]an ed to remove as much residu al lens epithe lial cells as safely possib le. The capsul ar bag was then inflat ed and the anteri or chambe r deepen ed with cohesi ve viscoe lastic . The lens implan t descri bed above was insert ed into the capsul ar bag using the Davidson Autono me Inject or. A Kuglen hook was used to dial the IOL into positi on. Residu al viscoe lastic was then remove d first from media services director ior to the IOL, then from the anteri or chambe r using the I/A handpi gadiel. The lens implan t was noted to center nicely within the capsul ar bag. The incisi ons were stroma lly hydrat ed, and the anteri or chambe r was reform ed using BSS. Then 0.5cc of moxifl oxacin 1.0mg/ ml were inject ed into the capsul ar bag and anteri or chambe r. The incisi ons were checke d with a Weck spear and found to be secure . Severa l drops of ophtha lmic povido ne-iod ine 5% were then applie d to the eye follow ed by two drops of combin ation steroi d/NSAI D/anti biotic soluti on. The drapes were remove d and a clear plasti c protec tive eye shield was placed over the eye. The patien t was then return ed to Same Day Surger y in stable condit ion. cc: PATSY Mccoy MD, KAYKAY ------ ------ ------ ------ ------ ------ ------ ------ ------ ------ ------ --- Dictat ed by: BRYAN WATSON, TANYA N Dictat ed: Time: Date: 084 9 Date: Date: Transc ribed Date: Transc ribed Time: 845 By: LORENE This is privil eged, confid ential inform ation, intend ed only for the provid er named. Any use or distri bution by any person other than this provid er is strict ly prohib ited. If you receiv e this rep ort in error, please notify us immedi ately at and return the origin al report to us at the addres s above. Thank you. ti [facility] [address] , [place], [address] 10/12/2023 10:18:40 06/30/20 24 08/07/2019 XR, hip No observ [...] 06/30 03:53:37 06/30/20 24 01/16/2023 MAMMO , chris montiel No observ ation record ed. Not Available 06/30 03:53:38 06/30/20 24 08/06/2020 imagi ng/di agnos tic resul t No observ ation record ed. Not Available 06/30 03:53:54 06/30/2001/19/2023 DEXA No observ ation record ed. Not Available 06/30 03:54:00 Result Notes None recorded. Problems Name Problem SNOMED Code Status Onset Date Resolution Date Notes Provider Name and Address Organization Details Recorded Time Chest pain 40101263 Active 2002 Problem Code: R07.9; Problem Code Type: ICD-10; Not Available [facility] 3 04:51:58 Elevated blood-pr essure reading without diagnosi s of hyperten celso 021282661 Active 200412/28/19 19 - Comments only - Sage Slaughter - Blood pressure s have been fluctuat [...] R03.0; Problem Code Type: ICD-10; Not Available [facility] 3 04:51:58 Overweig ht 089139867 Active 2004 Problem Code: E66.3; Problem Code Type: ICD-10; Not Available [facility] 3 04:51:58 Breast lump 58526556 Active 200412/27/19 18 - Comments only - Kaykay Dalton MD - , lt breast - likely fibrocys tic changes but obviousl y can't rule out a breast cancer. Kimberly wants to hold off on a mammo for now and states she will just monitor physical ly and let us know if there is a change or desire for a mammogra m Problem Code: N63; Problem Code Type: ICD-10; Not Available [facility] 3 04:51:58 Family history of breast cancer 879114433 Active 200405/28/20 20 - Comments only - Kaykay Dalton MD - she will consider doing a mammo next year - had one in 2018 Problem Code: Z80.3; Problem Code Type: ICD-10; Not Available [facility] 3 04:51:58 Acquired absence of cervix and uterus 304963985 Active 1982 Problem Code: Z90.710; Problem Code Type: ICD-10; Not Available [facility] 3 04:51:58 Divertic ulosis of large intestin e 738552180 Active 2009 Problem Code: K57.30; Problem Code Type: ICD-10; Not Available [facility] 3 04:51:58 History of malignan t neoplasm of uterine body 380606838 Active 198209/05/20 21 - Comments only - Kaykay Dalton MD - Status post TA H/BSO. Clinical ly no evidence of recurren ce. Of note she did have a recent abdomina l/pelvic CT for flank/ab dominal pain which was unremark able. Problem Code: Z85.42; Problem Code Type: ICD-10; Not Available [facility] 3 04:51:58 Gastroin testinal tract excision Active 2012 Problem Code: Z90.49; Problem Code Type: ICD-10; Not Available [facility] 3 04:51:59 Fracture of lower leg 525931932 Active 201210/05/20 15 - Comments only - Kaykay Dalton MD - now with some arthriti c aches. She realizes there is not a specific tx. She uses ibuprofe n on rare occasion Problem Code: S82.892; Problem Code Type: ICD-10; Not Available [facility] 3 04:51:59 Transien t cerebral ischemia 597750516 Active 201203/31/20 23 - Comments only - Kaykay Dalton MD - , Possible in 2015. She did have a head CT which showed atrophy, no evidence of prior infarct, carotid ultrasou nds without any definiti ve stenosis at the time. We could consider an MRI although not sure that alter future manageme nt. We will discuss with her at the next visit. Problem Code: G45.9; Problem Code Type: ICD-10; Not Available [facility] 3 04:51:59 Effusion of joint 802094964 Active 201410/05/20 15 - Comments only - Kaykay Dalton MD - rt knee - she will let me or ortho know if this becomes painful. Problem Code: M25.40; Problem Code Type: ICD-10; Not Available [facility] 3 04:51:59 Adult health examinat ion Active 201405/28/20 20 - Comments only - Kaykay Dalton MD - continui ng to lead a healthy lifestyl e. WIll check lipids, glucose, TSH. She has aged out of general preventa tive screenin g tests otherwis e. Problem Code: Z00.00; Problem Code Type: ICD-10; Not Available [facility] 3 04:51:59 Paresthe valeriy 86382255 Active 2015 Problem Code: R20.2; Problem Code Type: ICD-10; Not Available [facility] 3 04:51:59 Localize d eruption of skin 995370968 Active 201612/28/19 19 - Comments only - Sage Slaughter - Continue applying the cortison e cream. Suggeste d her to apply Bag Topock to the affected area. Problem Code: R21; Problem Code Type: ICD-10; Not Available [facility] 3 04:51:59 Cough 60836626 Completed 201711/10/2017 10/29/19 18 - Comments only - Tristan Andersen PA-C - Improved s/p ZITHROMA X. To continue on PREDNISO NE taper as RXD and suppleme nt PRN with ROBITUSS IN AC. Problem Code: R05; Problem Code Type: ICD-10; Not Available [facility] 3 04:52:00 Mass of left breast 72091362238 593867 Active 2018 Problem Code: N63.20; Problem Code Type: ICD-10; Not Available [facility] 3 04:52:00 Hip pain 23555060 Active 2018 Problem Code: M25.559; Problem Code Type: ICD-10; Not Available [facility] 3 04:52:00 Insomnia 199725796 Active 2018 Problem Code: G47.00; Problem Code Type: ICD-10; Not Available [facility] 3 04:52:00 Aftercar e Active 201904/02/20 20 - Comments only - Yaquelin Irene [facility] - - Reassure d pt area seems [...] Z51.89; Problem Code Type: ICD-10; Not Available [facility] 3 04:52:00 Bunion 868636882 Active 2019 Problem Code: M21.619; Problem Code Type: ICD-10; Not Available [facility] 3 04:52:00 Hammer toe 362932600 Active 201905/28/20 20 - Comments only - Kaykay Dalton MD - and akil - she is amenable to a referral to podiatry for further evaluati on Problem Code: M20.40; Problem Code Type: ICD-10; Not Available [facility] 3 04:52:00 Skin finding 649643364 Active 201905/28/20 20 - Comments only - Kaykay Dalton MD - likely age related but will check a CBC Problem Code: R23.8; Problem Code Type: ICD-10; Not Available [facility] 3 04:52:00 Amnesia 06956706 Active 201905/28/20 20 - Comments only - Kaykay Dalton MD - mild, difficul t to tell if due to hearing loss (not always hearing what her says) vs memory loss - will continue to monitor. She will let me know if worsenin g. Problem Code: R41.3; Problem Code Type: ICD-10; Not Available [facility] 3 04:52:01 Pre-surg jacek evaluati on Completed 201908/20/2020 08/09/20 20 - Comments only - Tristan Andersen PA-C - Today's EKG shows NSR @ 65bpm. Assuming benign findings with today's requeste d laborato ry testing, patient is medicall y cleared to advance with surgery as schedule d. 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 No persiste nt abdomina l symptoms . Still gets some back pain. Problem Code: M48.10; Problem Code Type: ICD-10; Not Available [facility] 3 04:52:01 Right lower quadrant pain 212922903 Active 2020 Problem Code: R10.31; Problem Code Type: ICD-10; Not Available [facility] 3 04:52:02 Tremor 75600339 Active 202012/29/19 23 - Comments only - Kaykay Dalton MD - And radhika slade hands intermit tently. Neither is botherin g her signific antly at this juncture . Problem Code: G25.2; Problem Code Type: ICD-10; Not Available [facility] 3 04:52:02 Screenin g mammogra phy Active 2022 Problem Code: Z12.31; Problem Code Type: ICD-10; Not Available [facility] 3 04:52:03 Vitamin B deficien cy 86356046 Active 202212/29/19 23 - Comments only - Kaykay Dalton MD - With a level of 190 a few years ago. She had been on B12 suppleme ntation, not sure why she stopped it. She is going to resume that. Problem Code: E53.8; Problem Code Type: ICD-10; Not Available [facility] 3 04:52:03 Adenocar cinoma of endometr ium 976965959 Completed 198207/11/2023 Not Available [facility] 3 04:52:03 Cholecys tectomy Completed 201207/11/2023 Not Available [facility] 3 04:52:04 Appendec jhoana Completed 201207/11/2023 Not Available [facility] 3 04:52:04 Swelling of limb 45169903 Completed 201407/11/2023 Not Available [facility] 3 04:52:04 Edema 039692000 Completed 201407/11/2023 Problem Code: R60.9; Problem Code Type: ICD-10; Not Available [facility] 3 04:52:04 Cataract 317793923 Active 2022 Melinda Gorman LPN null, [place] - [facility]. 3 14:00:00 Arthralg ia of the ankle and/or foot 089027199 Active 2022 Problem Code: M25.572; Problem Code Type: ICD-10; Not Available [facility] 4 05:34:14 Disorder of joint of ankle and/or foot 233333159 Active 2022 Problem Code: M12.872; Problem Code Type: ICD-10; Not Available [facility] 4 05:34:14 Conjunct ivitis 1941811 Completed 202207/16/2023 Problem Code: H10.9; Problem Code Type: ICD-10; Not Available [facility] 4 05:34:23 Dementia 80049269 Active 2023 KAYKAY DALTON MD [address], [place], [address] , [facility] 4 08:11:18 Notes:*Problem Name: Borderl ine [...] 4 Cerumen Removal completed Sal Frye MA [facility] 04/01/2024 09:21:59 Imaging Results Imaging Date Name Status LastModified by Organiz ation Details LastModified Time 09/28/2023 physician dsu discharge report completed [address] [place], [address] 09/28/2023 12:57:05 09/28/2023 report of operation completed [address] [place], [address] 09/28/2023 12:57:06 10/12/2023 physician dsu discharge report completed [address] [place], [address] 10/12/2023 10:18:40 10/12/2023 report of operation completed [address] [place], [address] 10/12/2023 10:18:40 08/07/2019 XR, hip completed Information no t available 06/30/2024 03:53:30 07/06/2023 imaging/diagno stic result completed Information not available 06/30/2024 03:53:31 12/04/2018 imaging/diagno stic result completed Information not available 06/30/2024 03:53:35 10/06/2020 imaging/diagno stic result completed Information not available 06/30/2024 03:53:37 01/16/2023 MAMMO, screening completed Information not available 06/30/2024 03:53:38 08/06/2020 imaging/diagno stic result completed Information not available 06/30/2024 03:53:54 01/19/2023 DEXA completed Information no t available 06/30/2024 03:54:00 Procedure Notes None recorded. Medical Equipment None [...] for 12 hours 12/27 completed as per [facility] Not Available Not Available Not Available [...] Available Not Available Not Avai lable Vitals Date Recorded Body height Body mass index (BMI) Body weight Heart rate Body temperature Systolic blood pressure Diastolic blood pressure Provider Name and Address Organization Details Last Updated DateTime 3 158.115 cm 28.5 kg/m2 48236.7 2 g 84 /min 96.7 [degF] 158 mm[Hg] 68 mm[Hg] Melinda mccoy LPN [facility] 3 14:04:17 Date Recorded Body height Oxygen saturation Oxygen saturation in Arterial blood by Pulse oximetry Heart rate Body mass index (BMI) Body weight Systolic blood pressure Diastolic blood pressure Provider Name and Address Organization Details Last Updated DateTime 4 158.115 cm 99 % 99 % 65 /min 29.4 kg/m2 43295.9 6 g 142 mm[Hg] 68 mm[Hg] Sal Frye MA [facility] 4 08:05:32 Date Recorded Body height Body mass index (BMI) Body weight Oxygen saturation Oxygen saturation in Arterial blood by Pulse oximetry Heart rate Systolic blood pressure Diastolic blood pressure Provider Name and Address Organization Details Last Updated DateTime 4 158.115 cm 28.8 kg/m2 48476.4 7 g 99 % 99 % 65 /min 128 mm[Hg] 76 mm[Hg] Sal Frye MA [facility] 4 09:13:50 Social History Question Answer Notes LastModified by Organizat ion Details LastModified Time Tobacco Smoking Status Never Smoker Sal Frye MA null, [facility] 04/01/2024 08:03:11 What Was The Date Of Your Most Recent Tobacco Screening? 04/01/2024 [email or web address] Information not available 04/01/2024 Do You Or Have You Ever Used Any Other Forms Of Tobacco Or Nicotine? No [email or web address] Information not available 04/01/2024 Sex: Female Functional Status None recorded. Mental Status None recorded. Family History Relationship Description Onset Age of this Age Resolved Age Notes LastModified by Organization Details LastModified Time Brother Family history of premature coronary heart disease [email or web address] Not available 2022 03:50:01 Brother Family history of malignant neoplasm THROAT CA x 1, BRAIN CA [email or web address] Not available 08/24/2023 03:50:07 Sister Family history of premature coronary heart disease S/P PACEMA KER [email or web address] Not available 08/24/2023 03:50:02 Sister Family history [...] 30 mcg/0.3 mL 4 completed Evy arita, [facility] 07/30/2024 15:36:58 Influenza, high-dose, trivalent, PF 4 completed Evy arita, [facility] 07/30/2024 15:36:58 Tdap 5 completed Not Available [facility] 08/24/2023 05:25:35 zoster live 7 completed Not Available [facility] 08/24/2023 05:25:35 Pneumococcal conjugate PCV 13 7 completed Not Available [facility] 08/24/2023 05:25:36 Influenza, high-dose, trivalent, PF 9 completed Not Available [facility] 08/24/2023 05:25:36 Td(adult) unspecified formulation 5 completed Not Available [facility] 08/24/2023 05:25:36 Influenza, high-dose, quadrivalent, PF 0 completed Not Available [facility] 08/24/2023 05:25:36 Influenza, high-dose, quadrivalent, PF 1 completed Not Available [facility] 08/24/2023 05:25:36 COVID-19, mRNA, LNP-S, PF, 100 mcg/0.5mL dose or 50 mcg/0.25mL dose 1 completed Not Available [facility] 08/24/2023 05:25:36 COVID-19, mRNA, LNP-S, PF, 100 mcg/0.5mL dose or 50 mcg/0.25mL dose 1 completed Not Available [facility] 08/24/2023 05:25:36 SARS-COV-2 (COVID-19) vaccine, UNSPECIFIED 1 completed Not Available [facility] 08/24/2023 05:25:36 pneumococcal polysaccharide PPV23 5 completed Not Available [facility] 08/24/2023 05:25:36 pneumococcal polysaccharide PPV23 5 completed Not Available [facility] 08/24/2023 05:25:36 influenza, unspecified formulation 2 completed Not Available [facility] 08/24/2023 05:25:37 Influenza, high-dose, quadrivalent, PF 3 completed Not Available [facility] 10/26/2023 05:31:16 COVID-19, mRNA, LNP-S, PF, leidy-sucrose, 30 mcg/0.3 mL 3 completed Sal Frye MA [facility], [place] - [facility]. 11/07/2023 11:15:39 Past Encounters Encounter ID Performer Location Encounter Start Date Encounter Closed Date Diagnosis/Indication Diagnosis SNOMED-CT Code Diagnosis ICD10 Code [id number] CAREY SALAZAR-RODRICK [facility] [address] [place] [address] 09/21/2023 13:35:46 09/21/2023 14:51:49 Pre-surgery evaluation 359732362 Z01.341 [id number] KAYKAY DALTON MD [facility] [address] [place] [address] 04/01/2024 07:50:08 04/01/2024 09:19:15 Elevated blood-pressure reading without diagnosis of hypertension 384523896 R03.0 Family his tory of breast cancer 135367659 Z80.3 Adult heal th examination 167620055 Z00.00 Dementia 39669555 F03.90 Skin finding 155335506 R 23.9 [id number] Evy Matute [facility] [address] [place] [address] 07/30/2024 14:51:36 07/30/2024 15:49:14 Active or passive immunization 403866088 Z23 [id number] TAYLOR GALLARDO [facility] [address] [place] [address] 09/30/2024 08:42:07 09/30/2024 10:11:19 Dementia 18722421 F03.90 Numbness of hand 0030206 04 R20.0 Hyperlipidemia 93591324 E78.5 Health Concerns Section Related Observation LastModified by Organization Detai ls LastModified Time None Recorded Concern Status LastModified by Organization Details LastModified Time None Recorded Advance Directives Directive None Recorded Payers Encounter Date Sequence Insurance Name Policy Number Policy Garnica Covered Member ID Garnica Member ID Guarantor Name 09/21/2023 1 [place] [employer] Kimberly Howell [id number] Kimberly Howell 04/01/2024 1 [place] [facility] Kimberly Howell [id number] Kimberly Howell 07/30/2024 1 [place] [facility] [employer] Kimberly Howell [id number] 9 Kimberly Howell Notes Date Note Type Note Provider Name and Address Organization Details Recorded Time 09/21/2023 text/html Pre-Op [facility] vandana bypatient.Surgery to be Performed:Bilateral cataract Risk Factorsno functional impairment; no frailty; able to climb a flight of stairs (exercise capacity>4 METS); non-smoker; no chronic cardiopulmonary condition; not obese;cognitive impairment; BMI = 28; takes memantine for memory impairment Anesthesia hx:no hx of anesthesia complications Functional Ability:able to walk up stairs; >4 METs Post-Op Support:Given memory impairment, should have present to review post-op instructions. Patient presents for pre-op evaluation. Procedure: bilateral cataract. New patient symptoms: None - feeling well. Surgery to be performed by {{ [place]#}} on {{DATE 09/28/2023}}an d 10/12/2023. YAQUELIN TIPTON, [facility]- [address], [place], [address], [facility]. 09/21/2023 15:13:24 04/01/2024 text/html Anyi here today with her for a medicare wellness check KAYKAY DALTON MD [address], [place], [address], [facility]. 04/06/2024 19:12:42 OBGyn Episode No OBEpisode recorded.
--- OUTSIDE RECORDS SUMMARY | 2024-09-30 11:10 | XMS_ITS | Clinical Summary ---
Author Organization [facility]ly [facility] Address [facility] [place] [address] Care Team Providers Care Voice Intercept Technician Name Role Phone Kaykay Cruz MD Primary Care Provider [phone] Allergies No known active allergies Medications Medication Sig Dispensed Refills Start Date End Date Status CIS Free Text Med - Calcium + D 06/06/2006 Active multivitamin (DAILY MULTIPLE) tablet 06/06/2006 Active nitroGLYcerin (NITROSTAT) 0.4 mg SL tablet 06/06/2006 Active naproxen (NAPROSYN) 500 mg tablet 500MG = 1 Tablet(s), PO, Twice daily 06/06/2006 Active cyclobenzaprine (FLEXERIL) 10 mg tablet 10MG = 1 Tablet(s), PO, QHS 06/06/2006 Active Social History Tobacco Use Types Packs/Day Years Used Date Smoking Tobacco: Never Assessed Sex and Gender Information Value Date Recorded Sex Assigned at Not on file Gender Identity Not on file Sexual Orientation Not on file Plan of Treatment Health Maintenance Due Date Last Done Comments Tetanus/Diphtheria/Pertussis Vaccines (1 - Tdap) 12/13 Zoster vaccine (1 of 2) 1990 Advance Directive 12/14/1995 Bone Density Scan 2005 Pneumoccocal Vaccine: 65+ (1 of 1 - PCV) 2005 RSV Vaccine (1 - 1-dose 75+ series) 12/14/2015 Covid-19 Vaccine (1 - 2023-25 season) 2024 Influenza (Flu) vaccine (1 o f 1 - Influenza standard series) 06/15/2024 Care Teams Voice Intercept Technician Relationship Specialty Start Date End Date Kaykay Cruz MD [address] [place], [place] [id number] PCP - General Family Medicine 11/04/15
--- OUTSIDE RECORDS SUMMARY | 2024-09-30 11:10 | XMS_ITS | Encounter Summary ---
Author Organization [facility] [place] [address] Care Team Providers Care Mercury Purifier Name Role Phone Kaykay Cruz MD Primary Care Provider [phone] Encounter Details Date Type Department Care Team (Late st Contact Info) Description 11/03/2015 4:00 PM EST Interpretation Only [facility] [address] [place] [address] Ramirez Dahl Jr., MD [address] [place] [address] Transient cerebral ischemia, unspecified type Social History Tobacco Use Types Packs/Day Years Used Date Smoking Tobacco: Never Assessed Sex and Gender Information Value Date Recorded Sex Assigned at Not on file Gender Identity Not on file Sexual Orientation Not on file documented as of this encounter Plan of Treatment Not on file documented as of this encounter Procedures Procedure Name Priority Date/Time Associated Diagnosis Comments ECHO SCAN (SCAN) 11/04/2015 12:00 AM EST documented in this encounter Results * SCAN DOC: ECHO (11/04/2015 12:00 AM EST) Anatomical Region Laterality Modality Other Scanning Provider MEDIA MGR SCAN EXT O RDR/RSLT documented in this encounter Visit Diagnoses Diagnosis Transient cerebral ischemia, unspecified type documented in this encounter Care Teams Mercury Purifier Relationship Specialty Start Date End Date Kaykay Cruz MD [address] [place] [address] PCP - General Family Medicine 11/04/15 documented as of this encounter
--- OUTSIDE RECORDS SUMMARY | 2024-09-30 11:10 | XMS_ITS | Encounter Summary ---
Author Organization [facility] Address [facility] [place] [address] Care Team Providers Care Technical Manager Name Role Phone Kaykay Cruz MD Primary Care Provider [phone] Encounter Details Date Type Department Care Team ([facility] st Contact Info) Description 08/20/2020 External [place] [address] Provider, Scanning Social History Tobacco Use Types Packs/Day Years Used Date Smoking Tobacco: Never Assessed Sex and Gender Information Value Date Recorded Sex Assigned at Not on file Gender Identity Not on file Sexual Orientation Not on file documented as of this encounter Plan of Treatment Not on file documented as of this encounter Procedures Procedure Name Priority Date/Time Associated Diagnosis Comments SURGICAL PATHOLOGY SCAN Routine 08/20/2020 documented in this encounter Results * Scan Doc: Surgical Pathology (08/20/2020) Historical Provider MD MARTINEZ MGR SCAN EX T ORDR/RSLT documented in this encounter Visit Diagnoses Not on filedocumented in this encounter Care Teams Technical Manager Relationship Specialty Start Date End Date Kaykay Cruz MD [address] [place] [address] PCP - General Family Medicine 11/04/15 documented as of this encounter
[2024-09-30 16:55] LABS: AST 19 U/L (15-37); Calculated LDL 126 mg/dL (<100); Cholesterol 218 mg/dL (<200); HDL Cholesterol 47 mg/dL (40-60); TSH (W/Ref FT4) 2.63 uIU/mL (0.36-3.74); Triglyceride 227 mg/dL (<150); Vitamin B12 506 pg/mL (193-986)
[2024-09-30 17:20] LABS: Hemoglobin A1C 5.4 % (<5.7)
== END 2024-09-30 11:08 | disposition home or self-care (01) ==
LOC: NCHCN 11:07
PROVIDERS: PCP Family Medicine; Visit Provider Family Medicine
DX: E78.5 Hyperlipidemia, unspecified (principal); R20.0 Anesthesia of skin
CPT/HCPCS: 80061; 82607; 83036; 84443; 84450

== ENCOUNTER 2025-01-10 00:04 | Emergency (ER) | payer MEDICARE, SELFPAY ==
[2025-01-10] VITALS (33 sets, daily range): BP systolic 138–176; BP diastolic 44–82; PULSE 69–85; RESP 6–23; O2SAT 95–99
--- NOTE | 2025-01-10 00:15 | RT.EKG_ITS ---
APPROVED REPORT Exam: Resting ECG Reason for Exam: chest pain, SOB Patient Location: E HR:84 bpm ECG Measurements Heart Rate 84 AXIS GA 187 P 37 QRSd 130 QRS -36 QT 392 T 129 QTc 465 Conclusion Sinus rhythm...normal P axis, V-rate 60- 99 Atrial premature complex...SV complex w/ short R-R interval LVH with secondary repolarization abnormality...multi-LVH criteria, abnrm ST-T no ST segment or T wave abnormalities to suggest occlusive [place]
--- NOTE | 2025-01-10 00:40 | W.ED.GENAD ---
Discharge Plan Disposition Patient Disposition: Home Condition: Good Discharge Details Clinical Impression: Shortness of breath Primary Care Provider: Kaykay Cruz V ED Provider: Laura Rizvi Home Meds and New Rx's Prescriptions: Continued cholecalciferol (vitamin D3) 50 mcg (2,000 unit) capsule 50 mcg PO DAILY mecobalamin (vitamin B12) 1,000 mcg tablet,disintegrating 1,000 mcg sublingual DAILY Rx Instructions: place tablet under tongue and allow to dissolve for at least30 secs before swallowing acetaminophen 500 mg tablet 500 mg PO Q6H PRN memantine 14 mg capsule,sprinkle,ER 24hr 14 mg PO DAILY ascorbic acid (vitamin C) [C-1000] 1,000 mg tablet 1 g PO DAILY simvastatin 20 mg tablet 20 mg PO DAILY Discharge Instructions Instructions: Shortness of Breath, Adult ED Additional Instructions: Call your primary care doctor in the morning to schedule an appointment for within the next week to followup on your visit here. Discuss with them whether you should have further cardiac testing. Return to the emergency department for new or worsening symptoms including if you have difficulty breathing, chest pain, feel like you are going to pass out, or if you have any other concerns. Referrals: Kaykay Cruz MD [Primary Care Provider] - [facility] General Mode of arrival: ambulatory. Date/Time Provider Initiated Documentation: 01/10/25 00:31. Limitations to Documentation: no limitations. Information obtained by: patient and family. HPI Narrative: 84yo F with hx TIA presenting after an episode of shortness of breath. Was ambulating to bathroom and felt short of breath, observed her rubbing her chest. Patient states this lasted for a few minutes and then resolved. No chest pain at any point per patient. Intermittent dry cough which is chronic and unchanged. Did have some nausea at the time but that has also resolved. thinks she did not drink much today and may be dehydrated. No prior cardiac history. She is otherwise in her usual state of health with no fevers, chills, rash, vomiting, abdominal pain, lightheadedness, syncope, numbness, tingling, weakness, back pain, or other concerns. Related Data Home Medications ?Medication ?Instructions ?Recorded ?Confirmed acetaminophen 500 mg tablet 500 mg PO Q6H PRN 07/11/23 01/10/25 cholecalciferol (vitamin D3) 50 50 mcg PO DAILY 07/11/23 01/10/25 mcg (2,000 unit) capsule mecobalamin (vitamin B12) 1,000 1,000 mcg sublingual DAILY 07/11/23 01/10/25 mcg disintegrating tablet,sublingual memantine 14 mg capsule 14 mg PO DAILY 07/11/23 01/10/25 sprinkle,extended release 24hr ascorbic acid (vitamin C) 1,000 mg 1 g PO DAILY 09/25/23 01/10/25 tablet (C-1000) simvastatin 20 mg tablet 20 mg PO DAILY 01/10/25 01/10/25 Allergies Allergy/AdvReac Type Severity Reaction Status Date / Time No Known Allergies Allergy Unverified 01/10/25 00:22 General Stated Complaint: GenMedical JENNA: 3 Review of Systems Narrative: see HPI Exam Narrative Exam Narrative: General: Alert, well appearing, well nourished, in no acute distress. Head: Normocephalic, atraumatic Neck: Trachea midline, ?Neck supple. ENT: ?Slightly dry MM.? No oropharygeal lesions or exudate. Cardiac: ?RRR, no murmurs appreciated Resp: No respiratory distress. CTAB. Abd: ?Soft, non-distended, nontender : ?No suprapubic tenderness. Extremities: ?No deformities.? No peripheral edema. Poor skin turgor. Neurologic: GCS 15. ? Moves all extremities freely against gravity Course Vital Signs Vital signs: Vital Signs Pulse 82 01/10/25 00:14 Respiratory Rate 20 01/10/25 00:14 Blood Pressure 166/80 H 01/10/25 00:14 Pulse Oximetry 97 01/10/25 00:14 Temperature Source Temporal Artery Scan 01/10/25 00:14 Pulse 80 01/10/25 00:32 Pulse 80 01/10/25 00:32 Respiratory Rate 12 01/10/25 00:32 Respiratory Effort Normal, Non-Labored 01/10/25 00:19 Respiratory Depth Normal 01/10/25 00:19 Respiratory Pattern Normal 01/10/25 00:19 Blood Pressure 143/59 H 01/10/25 00:31 Blood Pressure Mean 91 01/10/25 00:31 Blood Pressure Position Supine 01/10/25 00:14 Pulse Oximetry 97 01/10/25 00:32 Oxygen Delivery Method Room Air 01/10/25 00:14 Oxygen Flow Rate 0 01/10/25 00:14 Pain Level 0 01/10/25 00:14 Medical Decision Making 84yo F with hx TIA presenting after an episode of shortness of breath that lasted about 5 minutes. Symptoms resolved prior to arrival and she feels well at this time. Vital signs reassuring on arrival. Well appearing on exam with lungs CTAB, no respiratory distress. Otherwise well. Patient with some memory problems at baseline and so given potentially less reliable history will evaluate comprehensively for shortness of breath/chest pain. Out of abundance of caution will give 325 of asa. She has no tachycardia, hypoxia, pleuritic pain, or current shortness of breath to suggest pulmonary embolism; would not get dimer or CT imaging. No fevers or URI symptoms to suggest infection. -EKG SR, no ST segment or T wave abnormalities to suggest occlusive LA. Compared to most recent prior from 2016. -CXR independently reviewed; no focal pneumonia or pneumothorax on my view, radiology read with no acute findings. -Labs reviewed as below, CBC reassuring with no leukocytosis or anemia, CMP with no actionable abnormalities, Mg normal, coags normal, BNP not suggestive of heart failure, initial troponin 22 with one hour repeat of 22 . Moderate risk HEART score. -Repeat EKG reassuring,SR, no ST segment or T wave abnormalities to suggest occlusive LA. Given 500cc IVFB as she does appear dry on exam. On reassessment patient continues to feel entirely well. Denies any complaints. No recurrence of shortness of breath. No significant events on telemetry. Ambulated independently without symptoms. She would like to go home which is reasonable. Unclear etiology of symptoms earlier; certainly may represent anginal equivalent and so advised to followup closely with her PCP for further workup. No indication for inpatient workup at this time. Discharged home; discharge instructions and return precautions were reviewed with patient and who verbalized understanding. All questions were answered and they are in full agreement with the plan. Imaging Data Radiologic Study: Imaging: X-Ray Radiologist's impression: IMPRESSION: No acute cardiopulmonary process. Lab Data Lab results reviewed: Yes I reviewed the patient's lab results. Labs: Laboratory Tests Range/Units 01/10/25 01/10/25 01/10/25 00:32 01:50 03:41 WBC (4.4-10.8) 10^3/uL 10.02 RBC (3.93-5.22) 10^6/uL 4.45 Hgb (11.2-15.7) g/dL 13.1 Hct (36.0-46.0) % 40.9 MCV (80-95) fL 92 MCH (27.0-33.0) pg 29.4 MCHC (32.0-36.0) % 32.0 RDW (11.7-14.6) % 12.7 Plt Count (130-400) 10^3/uL 371 MPV (8.0-11.0) fL 9.6 Immature Gran % % 0.4 Neutrophils % % 62.4 Lymphocytes % % 24.8 Monocytes % % 9.4 Eosinophils % % 2.4 Basophils % % 0.6 Nucleated RBC % (0.0-0.3) % 0.0 Absolute Neutrophils (1.2-6.7) 10^3/uL 6.26 Absolute Lymphocytes (1.2-3.4) 10^3/uL 2.48 Absolute Monocytes (0.1-0.8) 10^3/uL 0.94 H Absolute Eosinophils (0.0-0.7) 10^3/uL 0.24 Absolute Basophils (0.0-0.2) 10^3/uL 0.06 PT (9.1-11.1) sec 10.5 INR (0.9-1.1) 1.0 APTT (20.6-30.2) sec 24.8 Sodium (136-145) mmol/L 144 Potassium (3.5-5.1) mmol/L 3.4 L Chloride (98-107) mmol/L 105 Carbon Dioxide (21.0-32.0) mmol/L 27.7 Anion Gap (3-11) mmol/L 11.3 H BUN (7-18) mg/dL 9 Creatinine (0.55-1.02) mg/dL 0.9 Est GFR (CKD-EPI 2020) (mL/min/1.73m2) 63.04 Glucose (74-106) mg/dL 107 H Calcium (8.5-10.1) mg/dL 9.0 Magnesium (1.8-2.4) mg/dL 1.8 Total Bilirubin (0.2-1.0) mg/dL 0.2 AST (15-37) U/L 19 ALT (14-59) U/L 24 Alkaline Phosphatase (46-116) U/L 119 H Troponin I (<or=51) ng/L 22 22 Cancelled NT-Pro-B Natriuret Pep (<300) pg/mL 222 Total Protein (6.4-8.2) g/dL 7.6 Albumin (3.4-5.0) g/dL 3.2 L Lipase (<78) U/L 55 Quality:SDOH Health Related Social Needs: No Data to Display PFSH All Active Problems (Updated 01/10/25 @ 02:43 by Laura Rizvi MD) Shortness of breath (Acute) Memory impairment (Acute) Elevated TSH (Acute) TIA (transient ischemic attack) (Acute) Vertigo (Acute) Medical History (Updated 01/10/25 @ 02:43 by Laura Rizvi MD) Paresthesia Breast lump Diverticulosis Hip pain Amnesia History of malignant neoplasm of uterine body Elevated blood pressure reading without diagnosis of hypertension Effusion of joint Fracture of lower leg Vitamin B deficiency Disseminated idiopathic skeletal hyperostosis Right lower quadrant abdominal pain Right upper quadrant abdominal pain Idiopathic osteoarthritis Insomnia Mass of left breast Hammer toe Chest pain Pt. states it was so quick and it went away, it went through my breast, and didn't last. Pt. states she didn't have it looked into because it was so quick and went away quick Diverticulosis of colon History of malignant neoplasm of endometrium Paresthesia of both hands Action tremor Surgical History (Updated 10/12/23 @ 08:46 by Warner Baker MD) History of bilateral carpal tunnel release History of colonoscopy History of open reduction and internal fixation (ORIF) procedure left ankle H/O spinal fusion History of cardiac cath 2000 Status post total abdominal hysterectomy and bilateral salpingo-oophorectomy (PATITO-BSO) History of cholecystectomy History of appendectomy Social History Smoking/Tobacco Use Status: Never Smoking risk assessment performed?: Yes Alcohol Intake: former Drug use: Never Substance use type: does not use Housing: house Do you feel safe at home: Yes Do you feel safe in your relationship?: Yes
[2025-01-10 00:48] LABS: Abs Immature Grans 0.04 10^3/uL (0.0-0.06); Absolute Basophil Count 0.06 10^3/uL (0.0-0.2); Absolute Eosinophil Count 0.24 10^3/uL (0.0-0.7); Absolute Lymphocyte Count 2.48 10^3/uL (1.2-3.4); Absolute Monocyte Count 0.94 10^3/uL (0.1-0.8); Absolute Neutrophil Count 6.26 10^3/uL (1.2-6.7); Basophils % 0.6 %; Eosinophils % 2.4 %; HCT 40.9 % (36.0-46.0); HGB 13.1 g/dL (11.2-15.7); Immature Grans % 0.4 %; Lymphocytes % 24.8 %; MCH 29.4 pg (27.0-33.0); MCV 92 fL (80-95); MPV 9.6 fL (8.0-11.0); Monocytes % 9.4 %; Neutrophils % 62.4 %; Platelet Count 371 10^3/uL (130-400); RBC 4.45 10^6/uL (3.93-5.22); RDW 12.7 % (11.7-14.6); RDW-SD 42.6 fL; WBC 10.02 10^3/uL (4.4-10.8)
[2025-01-10] MEDS: Aspirin 81 MG CHEW 324 MG CH (00:48)
[2025-01-10 01:01] LABS: PTT Activated 24.8 sec (20.6-30.2); Prothrombin Time 10.5 sec (9.1-11.1)
--- NOTE | 2025-01-10 01:05 | DI.RAD_ITS ---
Exam(s) XR CHEST 2V PA LATERAL EXAM: XR CHEST 2V PA LATERAL CLINICAL HISTORY: shortness of breath. TECHNIQUE: 2D digital imaging was performed. COMPARISON: CR CHEST 2 VIEWS PA,LAT from 11/27/2017 FINDINGS: 2 views: Heart size is normal. The mediastinum is not widened. Lungs are clear. No infiltrates nor pleural effusions. Chronic elevation the right hemidiaphragm is unchanged from 2018. IMPRESSION: No acute pulmonary findings.Mild chronic elevation the right hemidiaphragm DATA REPOSITORY: RADIATION DOSE DELIVERED:
[2025-01-10 01:10] LABS: ALT 24 U/L (14-59); AST 19 U/L (15-37); Albumin 3.2 g/dL (3.4-5.0); Alkaline Phosphatase 119 U/L (46-116); Anion Gap 11.3 mmol/L (3-11); BUN 9 mg/dL (7-18); Bilirubin, Total 0.2 mg/dL (0.2-1.0); CO2 27.7 mmol/L (21.0-32.0); CREATININE 0.9 mg/dL (0.55-1.02); Chloride 105 mmol/L (98-107); Estimated GFR 63.04 (mL/min/1.73m2); Glucose 107 mg/dL (74-106); Lipase 55 U/L (<78); Magnesium 1.8 mg/dL (1.8-2.4); NT-proBNP 222 pg/mL (<300); Potassium 3.4 mmol/L (3.5-5.1); Sodium 144 mmol/L (136-145); Total Protein 7.6 g/dL (6.4-8.2); Troponin I 22 ng/L (<or=51)
[2025-01-10] MEDS: Normal Saline 500 ML IV (01:33)
[2025-01-10 02:15] LABS: Troponin I 22 ng/L (<or=51)
--- NOTE | 2025-01-10 02:15 | RT.EKG_ITS ---
APPROVED REPORT Exam: Resting ECG Reason for Exam: shortness of breath Patient Location: E HR:68 bpm ECG Measurements Heart Rate 68 AXIS UT 185 P 55 QRSd 124 QRS -31 QT 438 T [id number] QTc 468 Conclusion Sinus rhythm...normal P axis, V-rate 60- 99 Probable left atrial enlargement...P >50mS, <-0.10mV V1 Left bundle branch block...QRSd>120, broad/notched R no ST segment or T wave abnormalitites to suggest occlusive [place]
--- NOTE | 2025-01-10 02:21 | DI.VRAD_ITS ---
PROCEDURE INFORMATION: Exam: XR Chest Exam date and time: 01/10/2025 12:57 AM Age: 84 years old Clinical indication: Shortness of breath TECHNIQUE: Imaging protocol: Radiologic exam of the chest. Views: 2 views. COMPARISON: CT CHEST/ABD/PEL W 10/06/2020 2:08 PM FINDINGS: Lungs: Bilateral apical fibrotic changes. There is no evidence of focal pulmonary consolidation. Pleural spaces: Unremarkable. No pleural effusion. No pneumothorax. Heart/Mediastinum: Unremarkable. No cardiomegaly. Vasculature: There are aortic arch calcifications. There is unfolding of the thoracic aorta. Bones/joints: Moderate degenerative disease of bilateral acromioclavicular joints. There are mild degenerative changes of the glenohumeral joint. Mild curvature of the thoracic spine convex to the right. The thoracic spine demonstrates mild degenerative changes at multiple levels. IMPRESSION: No acute cardiopulmonary process. Dictated and Authenticated by: David Barajas MD. Orderin Dmitri Sanchez MD
== END 2025-01-10 02:52 | disposition home or self-care (01) ==
PROVIDERS: Emergency Provider Student in an Organized Health Care Education/Training Program; PCP Family Medicine
DX: R06.02 Shortness of breath (principal); Z98.1 Arthrodesis status; Z86.73 Personal history of transient ischemic attack (TIA), and cerebral infarction without residual deficits
CPT/HCPCS: 36415; 80053; 83690; 93005; 96360; 99285; 71046; 83735; 83880; 84484; 85025; 85610; 85730; 93010

== ENCOUNTER 2025-04-30 13:56 | Outpatient (CLI) | payer MEDICARE, SELFPAY ==
--- NOTE | 2025-04-30 13:30 | DI.RAD_ITS ---
Exam(s) XR CHEST 2V PA LATERAL EXAM: XR CHEST 2V PA LATERAL CLINICAL HISTORY: cough R05.9 TECHNIQUE: 2D digital imaging was performed of the chest. Two images were obtained. PA and lateral views were obtained. COMPARISON: CR,XR XR CHEST 2V PA LATERAL from 01/10/2025 FINDINGS: MEDIASTINUM: Normal. HEART: Normal. PULMONARY VASCULATURE: Normal. LUNGS: Clear. PLEURAL SPACE: No pleural effusion or pneumothorax. BONE:Within normal limits for the patient's age. OTHER FINDINGS:Normal. IMPRESSION: No acute pulmonary findings. DATA REPOSITORY: RADIATION DOSE DELIVERED:
== END 2025-04-30 14:16 ==
PROVIDERS: PCP Family Medicine; Visit Provider Physician Assistant
DX: R05.9 Cough, unspecified (principal)
CPT/HCPCS: 71046

== ENCOUNTER 2025-05-20 01:31 | Outpatient (CLI) | payer MEDICARE, SELFPAY ==
--- NOTE | 2025-05-20 | DI.DEXA_ITS ---
Exam(s) XR DEXA BONE DENSITY W/WO EDI EXAM: XR DEXA BONE DENSITY W/WO EDI CLINICAL HISTORY: SCREENING FOR OSTEOPOROSIS,ASYMPTOMATIC MENOPAUSAL STATE,Z78.0 TECHNIQUE: COMPARISON: DX DEXA BONE DENSITY WITH EDI from 05/11/2010 FINDINGS: Lateral Spine Image: Unremarkable. No compression deformities identified. Left hip: Total T-Score: -1.1. This compares to -0.5 on the prior examination. Total Z-Score: 1.2 T- and Z-scores: The findings are consistent with osteopenia. Lumbar Spine: Total T-Score: 3.2. This compares to 2.1 on the prior examination. Total Z-Score: 6.0 T- and Z-scores: Within normal limits. Note is made of osteoporosis in the proximal right forearm with a T-score of - 3.0 and a Z-score of 0.6. IMPRESSION: 1. There is no evidence of osteoporosis in the left hip or lumbar spine. 2. Osteoporosis is seen in the proximal right forearm.
== END 2025-05-20 01:51 ==
PROVIDERS: PCP Family Medicine; Visit Provider Family Medicine
DX: Z13.820 Encounter for screening for osteoporosis (principal); Z78.0 Asymptomatic menopausal state; M81.0 Age-related osteoporosis without current pathological fracture
CPT/HCPCS: 77080

== ENCOUNTER 2025-08-26 14:38 | Emergency (ER) | payer MEDICARE, SELFPAY ==
[2025-08-26] VITALS (24 sets, daily range): BP systolic 113–181; BP diastolic 56–96; PULSE 54–79; RESP 10–22; TEMP 36.4–37; O2SAT 96–100
--- NOTE | 2025-08-26 16:53 | W.ED.GENAD ---
Discharge Plan Disposition Patient Disposition: Home Condition: Stable Discharge Details Clinical Impression: Abdominal pain Primary Care Provider: Kaykay Cruz V ED Provider: Flaco Ceja Home Meds and New Rx's Prescriptions: New amoxicillin-pot clavulanate 875-125 mg tablet 1 tab PO BID Qty: 14 0RF Continued cholecalciferol (vitamin D3) 50 mcg (2,000 unit) capsule 50 mcg PO DAILY mecobalamin (vitamin B12) 1,000 mcg tablet,disintegrating 1,000 mcg sublingual DAILY Rx Instructions: place tablet under tongue and allow to dissolve for at least30 secs before swallowing acetaminophen 500 mg tablet 500 mg PO Q6H PRN memantine 14 mg capsule,sprinkle,ER 24hr 14 mg PO DAILY ascorbic acid (vitamin C) [C-1000] 1,000 mg tablet 1 g PO DAILY simvastatin 20 mg tablet 20 mg PO DAILY Discharge Instructions Instructions: Diverticulitis Additional Instructions: Your blood work and CAT scan did not show any concerning findings other than mild diverticulitis. Take the antibiotic as prescribed. If not improving within a week follow-up with your primary care provider. If you feel more ill, have severe worsening pain or high fevers return to the emergency department for reevaluation. Stand Alone Forms: Portal Information HPI General Mode of arrival: ambulatory. Date/Time Provider Initiated Documentation: 08/26/25 15:16. Limitations to Documentation: no limitations. Information obtained by: patient. History of Present Illness 84 year old F presents to the emergency department with the chief complaint of left sided abdominal pain, described as moderate, Quality is described as sharp, and it has been constant. No relieving factors improve symptom(s), No exacerbating factors reported . Patient notes no other symptoms.. Patient did receive the following treatments prior to arrival, none Related Data Home Medications Medication Instructions Recorded Confirmed acetaminophen 500 mg tablet 500 mg PO Q6H PRN 07/11/23 08/26/25 cholecalciferol (vitamin D3) 50 50 mcg PO DAILY 07/11/23 08/26/25 mcg (2,000 unit) capsule mecobalamin (vitamin B12) 1,000 1,000 mcg sublingual DAILY 07/11/23 08/26/25 mcg disintegrating tablet,sublingual memantine 14 mg capsule 14 mg PO DAILY 07/11/23 08/26/25 sprinkle,extended release 24hr ascorbic acid (vitamin C) 1,000 mg 1 g PO DAILY 09/25/23 08/26/25 tablet (C-1000) simvastatin 20 mg tablet 20 mg PO DAILY 01/10/25 08/26/25 amoxicillin 875 mg-potassium 1 tab PO BID #14 tabs 08/26/25 clavulanate 125 mg tablet Previous Rx's Medication Instructions Recorded amoxicillin 875 mg-potassium 1 tab PO BID #14 tabs 08/26/25 clavulanate 125 mg tablet Allergies Allergy/AdvReac Type Severity Reaction Status Date / Time No Known Allergies Allergy Unverified 08/26/25 15:06 General Stated Complaint: Abd Prob JENNA: 3 Review of Systems All systems reviewed & are unremarkable except as noted in HPI and below Constitutional Constitutional: Denies chills, Denies fever(s) and Denies weakness Cardiovascular Cardiovascular: Denies chest pain and Denies dyspnea Respiratory Respiratory: Denies cough and Denies dyspnea Gastrointestinal Gastrointestinal: Reports abdominal pain, Denies nausea and Denies vomiting Neurologic Neurologic: Denies weakness Exam Const General: no acute distress Orientation: alert [facility] Head: normal to inspection Ears: external ears normal General nose exam: external nose normal Mouth: moist mucous membranes Eyes General: appearance normal, both eyes and all related structures Neck Neck: normal visual inspection Resp Effort & Inspection: normal respiratory effort and able to speak in complete sentences Cardio Rate: regular rate GI Palpation: soft and tender Skin General skin exam: no rashes or lesions noted Neuro General: patient alert and patient oriented x3 Extrem General: normal to inspection Psych Mental Status: mental status grossly normal Course Vital Signs Vital signs: Vital Signs Temperature 36.4 C 08/26/25 15:03 Pulse 69 08/26/25 15:03 Respiratory Rate 20 08/26/25 15:03 Blood Pressure 149/84 H 08/26/25 15:03 Pulse Oximetry 96 08/26/25 15:03 Temperature 36.4 C 08/26/25 15:03 Pulse 69 08/26/25 15:03 Respiratory Rate 20 08/26/25 15:03 Blood Pressure 149/84 H 08/26/25 15:03 Blood Pressure Position Sitting 08/26/25 15:03 Pulse Oximetry 96 08/26/25 15:03 Oxygen Delivery Method Room Air 08/26/25 15:03 Oxygen Flow Rate 0 08/26/25 15:03 Medical Decision Making 84-year-old female with a history of prior appendectomy, prior cholecystectomy, hysterectomy who comes in with 5 days of worsening left-sided abdominal pain. Denies any fevers, chills, chest pain, vomiting, changes in urination or pain with urination. She is stable on arrival and has tenderness primarily in the left lower quadrant. She has no upper abdominal tenderness. No posterior back pain. Given her history we will check a CBC CMP lipase and CT abdomen pelvis to evaluate for entities such as diverticulitis versus SBO. Labs unremarkable and CT shows no obvious abnormalities though she does have extensive diverticulosis and given her location of her pain I suspect she probably has diverticulitis. She is stable and requesting discharge which I feel is reasonable. I will start her on Augmentin. She will follow-up with her PCP if not improving and return precautions given. Differential Diagnosis Differential Diagnosis: Diverticulitis, small bowel obstruction, Medical Records Medical records reviewed: Yes I reviewed the patient's medical records. Lab Data Lab results reviewed: Yes I reviewed the patient's lab results. PFSH All Active Problems (Updated 08/26/25 @ 19:39 by Flaco Ceja MD) Abdominal pain (Acute) Memory impairment (Acute) Elevated TSH (Acute) TIA (transient ischemic attack) (Acute) Vertigo (Acute) Medical History Paresthesia Breast lump Diverticulosis Hip pain Amnesia History of malignant neoplasm of uterine body Elevated blood pressure reading without diagnosis of hypertension Effusion of joint Fracture of lower leg Vitamin B deficiency Disseminated idiopathic skeletal hyperostosis Right lower quadrant abdominal pain Right upper quadrant abdominal pain Idiopathic osteoarthritis Insomnia Mass of left breast Hammer toe Chest pain Pt. states it was so quick and it went away, it went through my breast, and didn't last. Pt. states she didn't have it looked into because it was so quick and went away quick Diverticulosis of colon History of malignant neoplasm of endometrium Paresthesia of both hands Action tremor Surgical History History of bilateral carpal tunnel release History of colonoscopy History of open reduction and internal fixation (ORIF) procedure left ankle H/O spinal fusion History of cardiac cath 2000 Status post total abdominal hysterectomy and bilateral salpingo-oophorectomy (PATITO-BSO) History of cholecystectomy History of appendectomy Social History Smoking/Tobacco Use Status: Never Smoking risk assessment performed?: Yes Alcohol Intake: former Drug use: Never Substance use type: does not use Housing: house Do you feel safe at home: Yes Do you feel safe in your relationship?: Yes
[2025-08-26 17:25] LABS: Abs Immature Grans 0.05 10^3/uL (0.0-0.06); HCT 42.9 % (36.0-46.0); HGB 14.1 g/dL (11.2-15.7); Immature Grans % 0.4 %; MCH 29.1 pg (27.0-33.0); MCHC 32.9 % (32.0-36.0); MCV 89 fL (80-95); MPV 9.0 fL (8.0-11.0); Platelet Count 481 10^3/uL (130-400); RBC 4.84 10^6/uL (3.93-5.22); RDW 13.0 % (11.7-14.6); RDW-SD 42.5 fL; WBC 11.33 10^3/uL (4.4-10.8)
[2025-08-26 17:27] LABS: Glucose Negative (Negative)
[2025-08-26 17:37] LABS: C & S Indicated? No; RBC 0-2 HPF (0-2); WBC Negative HPF (0-5)
[2025-08-26 17:47] LABS: Lipase 38 U/L (<53); Magnesium 2.0 mg/dL (1.6-2.6)
[2025-08-26 17:49] LABS: ALT 15 U/L (10-49); AST 21 U/L (<34); Albumin 4.8 g/dL (3.4-5.0); Alkaline Phosphatase 98 U/L (46-116); Anion Gap 8.8 mmol/L (3-11); BUN 9 mg/dL (9-23); Bilirubin, Total 0.60 mg/dL (0.2-1.2); CO2 29.2 mmol/L (20.0-31.0); Calcium 9.7 mg/dL (8.3-10.6); Chloride 102 mmol/L (98-107); Glucose 95 mg/dL (74-106); Potassium 3.7 mmol/L (3.5-5.1); Sodium 140 mmol/L (136-145); Total Protein 8.8 g/dL (5.7-8.2)
[2025-08-26] MEDS: Normal Saline - Diluent 50 ML VIAL IJ (18:33)
[2025-08-26] MEDS: Omnipaque 350 MG/ML 100 ML BTL IJ (18:33)
[2025-08-26] MEDS: Normal Saline Flush 10 ML SYR IVP (18:33)
--- NOTE | 2025-08-26 18:42 | DI.CT_ITS ---
Exam(s) CT ABDOMEN PELVIS W EXAM: CT ABDOMEN PELVIS W CLINICAL HISTORY: left sided abdominal pain. TECHNIQUE: Imaging Protocol: Axial computed tomography images with coronal and sagittal reformatted images were created and reviewed CONTRAST MATERIAL: Intravenous: Omnipaque-350 75cc Oral: None COMPARISON: CT CT CHEST/ABD/PEL W from 10/06/2020 FINDINGS: VISUALIZED LUNG BASES: No nodules nor pleural effusions evident. ABDOMEN: There is no ascites. LIVER: There are no focal hepatic lesions evident. No dilated intrahepatic ducts. GALLBLADDER/BILIARY: Gallbladder is again noted to be surgically absent. CBD is not dilated. PANCREAS: No evidence of pancreatic mass nor dilatation of the pancreatic duct. SPLEEN: Spleen is not enlarged. No obvious intrasplenic lesions. Splenic and portal veins are patent. ADRENALS: There are no significant adrenal masses. KIDNEYS:Parapelvic cysts in both kidneys again noted. No solid renal masses. No calculi nor hydronephrosis.. ABDOMINAL AORTA: The abdominal aorta is calcified and upper normal diameter. Also no significant aneurysmal dilatation of the iliac arteries. LYMPH NODES:There is no retroperitoneal nor paraaortic adenopathy. ABDOMINAL WALL: No evidence of significant anterior abdominal wall nor inguinal hernia. GI: There is no evidence of bowel obstruction, free air, nor abscess. PELVIS: GI: Appendix not seen/surgically absent.There is extensive sigmoid diverticulosis without evidence of obvious acute diverticulitis. LYMPH NODES: There is no intrapelvic nor inguinal adenopathy. REPRODUCTIVE: Uterus is surgically absent. No abnormal adnexal masses. URINARY BLADDER: No calculi nor obvious masses evident OSSEOUS: No fractures and no significant osseous lesions. Advanced osteoarthritic degenerative changes again noted in both hips.. Multilevel chronic degenerative disc disease further progression when compared to September [address] scan. No new compression fractures. IMPRESSION: 1. Again noted is evidence of previous cholecystectomy and hysterectomy and prior appendectomy. No evidence of bowel obstruction. 2. There is extensive sigmoid diverticulosis. No obvious acute diverticulitis although there is a possibility of missing very subtle diverticulitis given the extensive involvement of the sigmoid with diverticuli here. Correlation with clinical findings recommended. 3. Advanced degenerative changes again noted in both hips. No fractures evident. Report called by myself to ER physician 08/26/2025 at 6:57 p.m. RADIATION DOSE DELIVERED: 578.17mGy.cm Total DLP DATA REPOSITORY: All CT scans at this facility are submitted to the National Radiology Data Registry (NRDR) Dose Index Registry (DIR) with the [employer] (ACR). RADIATION OPTIMIZATION: All CT scans at this facility use at least one of these dose optimization techniques: automated exposure control; mA and/or kV adjustment per patient size (includes targeted exams where dose is matched to clinical indication); or iterative reconstruction.
[2025-08-26] MEDS: Normal Saline 1,000 ML 1000 ML IV (18:54)
[2025-08-26] MEDS: Amoxicillin 875/Clav. 125 TAB PO (19:46)
== END 2025-08-26 19:51 | disposition home or self-care (01) ==
PROVIDERS: Emergency Provider Emergency Medicine; PCP Family Medicine
DX: R10.A2 Flank pain, left side (principal); K57.33 Diverticulitis of large intestine without perforation or abscess with bleeding
CPT/HCPCS: 99283; 99285; 80053; 83690; 74177; 81003; 81015; 83735; 85025; J3490

== ENCOUNTER 2025-09-11 09:52 | Emergency (ER) | payer MEDICARE, SELFPAY ==
[2025-09-11 09:57] VITALS: BP 178/94; PULSE 67; RESP 16; TEMP 37.2; O2SAT 98
[2025-09-11 09:59] VITALS: BP 178/94; PULSE 67; RESP 16; TEMP 37.2; O2SAT 98
[2025-09-11 10:29] LABS: Abs Immature Grans 0.05 10^3/uL (0.0-0.06); HCT 39.2 % (36.0-46.0); HGB 12.8 g/dL (11.2-15.7); Immature Grans % 0.4 %; MCH 28.8 pg (27.0-33.0); MCHC 32.7 % (32.0-36.0); MCV 88 fL (80-95); MPV 9.5 fL (8.0-11.0); Platelet Count 468 10^3/uL (130-400); RBC 4.44 10^6/uL (3.93-5.22); RDW 13.0 % (11.7-14.6); RDW-SD 42.6 fL; WBC 11.73 10^3/uL (4.4-10.8)
[2025-09-11] MEDS: Normal Saline 1,000 ML 1000 ML IV (10:30)
[2025-09-11] MEDS: Ketorolac 15 MG/ML VIAL IVP (10:30)
[2025-09-11] MEDS: Acetaminophen 325 MG TAB 650 MG PO (10:33)
[2025-09-11 10:45] LABS: Lipase 38 U/L (<53)
[2025-09-11 10:47] LABS: ALT 12 U/L (10-49); AST 17 U/L (<34); Albumin 4.1 g/dL (3.2-5.0); Alkaline Phosphatase 98 U/L (46-116); Anion Gap 9.9 mmol/L (3-11); BUN 10 mg/dL (9-23); Bilirubin, Total 0.40 mg/dL (0.2-1.2); CO2 25.1 mmol/L (20.0-31.0); Calcium 9.0 mg/dL (8.3-10.6); Chloride 104 mmol/L (98-107); Glucose 99 mg/dL (74-106); Potassium 4.2 mmol/L (3.5-5.1); Sodium 139 mmol/L (136-145); Total Protein 7.5 g/dL (5.7-8.2)
[2025-09-11] MEDS: Normal Saline Flush 10 ML SYR IVP (11:00)
[2025-09-11] MEDS: Omnipaque 350 MG/ML 100 ML BTL IJ (11:00)
[2025-09-11] MEDS: Normal Saline - Diluent 50 ML VIAL IJ (11:00)
[2025-09-11 11:04] VITALS: BP 202/71; PULSE 76; RESP 22; O2SAT 98
[2025-09-11 11:08] LABS: Glucose Negative (Negative)
--- NOTE | 2025-09-11 11:16 | DI.CT_ITS ---
Exam(s) CT ABDOMEN PELVIS W EXAM: CT ABDOMEN PELVIS W CLINICAL HISTORY: LLQ tenderness. TECHNIQUE: Imaging Protocol: Axial computed tomography images with coronal and sagittal reformatted images were created and reviewed CONTRAST MATERIAL: Intravenous: Omnipaque 350 Contrast volume:75 ml Oral: no COMPARISON: CT CT ABDOMEN PELVIS W from 08/26/2025 FINDINGS: ABDOMEN and PELVIS: Lung Bases: No acute findings. Liver: Normal density. No suspicious mass. Gallbladder and biliary tract: Cholecystectomy.. No biliary dilation. Pancreas: Normal density. No abnormal calcifications or inflammatory process. No evidence of mass. Spleen: Normal. Kidneys: Normal size, contour and axis. No radiodense stones. No obstructive uropathy. Parapelvic cysts are again noted. No follow-up is recommended. No suspicious masses seen. Adrenal glands: No masses seen. Vasculature: Abdominal aorta non-dilated. Atherosclerotic changes. Soft tissues: Unremarkable. Bladder: No empty and not well evaluated. Bowel: No obstruction. No bowel wall thickening. Appendix normal. Diverticulosis of the sigmoid colon. No evidence of diverticulitis. Normal quantity of stool. Peritoneal cavity: No ascites. No focal collection. No mesenteric inflammatory response. No free air. Bones: Degenerative changes of both hips and lumbar spine. Mild scoliosis. Reproductive organs: hysterectomy. Lymph nodes: No pathologically enlarged lymph nodes. IMPRESSION:: No acute abnormality in the abdomen or pelvis. Diverticulosis but no evidence of diverticulitis. RADIATION DOSE DELIVERED: 519.29mGy.cm Total DLP DATA REPOSITORY: All CT scans at this facility are submitted to the National Radiology Data Registry (NRDR) Dose Index Registry (DIR) with the [employer] (ACR). RADIATION OPTIMIZATION: All CT scans at this facility use at least one of these dose optimization techniques: automated exposure control; mA and/or kV adjustment per patient size (includes targeted exams where dose is matched to clinical indication); or iterative reconstruction.
--- NOTE | 2025-09-11 11:18 | W.ED.GENAD ---
Discharge Plan Disposition Patient Disposition: Home Condition: Stable Discharge Details Clinical Impression: Abdominal pain of unknown cause Primary Care Provider: Kaykay Cruz V ED Provider: Moises Leone Home Meds and New Rx's Prescriptions: Continued cholecalciferol (vitamin D3) 50 mcg (2,000 unit) capsule 50 mcg PO DAILY mecobalamin (vitamin B12) 1,000 mcg tablet,disintegrating 1,000 mcg sublingual DAILY Rx Instructions: place tablet under tongue and allow to dissolve for at least30 secs before swallowing acetaminophen 500 mg tablet 500 mg PO Q6H PRN memantine 14 mg capsule,sprinkle,ER 24hr 14 mg PO DAILY ascorbic acid (vitamin C) [C-1000] 1,000 mg tablet 1 g PO DAILY simvastatin 20 mg tablet 20 mg PO DAILY Discharge Instructions Instructions: Abdominal Pain, Adult ED Additional Instructions: You were seen in the emergency department for your abdominal discomfort, your blood work shows no major abnormalities, no elevation of liver or pancreas enzymes or kidney function is good, your CT scan shows no acute findings like diverticulitis or small bowel obstruction, you do have a lot of gas in your stomach and we did treat you with Tylenol as well as some IV fluids and a medicine called simethicone or Gas-X with some improvement. Please return to the emergency department for any emergent concerns like severe acute worsening, fever, intractable nausea or vomiting, shortness of breath, chest pain. Stand Alone Forms: Portal Information Referrals: Kaykay Cruz MD [Primary Care Provider, Medicine] Discharge Data Discharge Date/Time-TO BE ENTERED AT DEPARTURE: 09/11/25 12:12 HPI General Date/Time Provider Initiated Documentation: 09/11/25 10:16. HPI Narrative: 84 year-old female presents to ED today by POV/ambulating with her with a chief complaint of LLQ abdominal pain with onset noted the past day or two. Quality described as dull abdominal pain, no radiation to nausea/vomiting, fever, diarrhea, black/bloody stools, fever, cough, shortness of breath, chest pain, headache, body aches. Severity is described as moderate. Palliating factors include nothing specific. Provoking factors include nothing specific. Events leading up to the incident/Associated Symptoms: Patient endorses normal appetite, had Thanksgiving yesterday. Patient was treated for diverticulitis two weeks ago. Patient not anticoagulated. Related Data Home Medications ?Medication ?Instructions ?Recorded ?Confirmed acetaminophen 500 mg tablet 500 mg PO Q6H PRN 07/11/23 09/11/25 cholecalciferol (vitamin D3) 50 50 mcg PO DAILY 07/11/23 09/11/25 mcg (2,000 unit) capsule mecobalamin (vitamin B12) 1,000 1,000 mcg sublingual DAILY 07/11/23 09/11/25 mcg disintegrating tablet,sublingual memantine 14 mg capsule 14 mg PO DAILY 07/11/23 09/11/25 sprinkle,extended release 24hr ascorbic acid (vitamin C) 1,000 mg 1 g PO DAILY 09/25/23 09/11/25 tablet (C-1000) simvastatin 20 mg tablet 20 mg PO DAILY 01/10/25 09/11/25 Allergies Allergy/AdvReac Type Severity Reaction Status Date / Time No Known Allergies Allergy Unverified 09/11/25 09:59 General Stated Complaint: Abd Prob JENNA: 3 Review of Systems All systems reviewed & are unremarkable except as noted in HPI and below Exam Narrative Exam Narrative: GENERAL APPEARANCE: Well-nourished, non-toxic, awake and alert, atraumatic, mild acute distress. SKIN: Warm, pink, dry, intact, without rashes/lesions/ulcerations. HEAD: Normocephalic, atraumatic, normal hair distribution for gender/age. EYES: Normal conjunctiva, no exudates on lids/lashes. ENT: Nares patent, no circumoral cyanosis, no facial swelling NECK: Supple, trachea midline, painless cervical ROM. LUNGS/CHEST: Lungs CTA bilaterally- no rhonchi/rales/wheezes diffusely, non-labored respirations, normal A/P diameter, symmetrical expansion, no chest wall deformity HEART (CV/PV): Regular rate and rhythm without murmur, no peripheral edema, no JVD. ABDOMEN: Soft, non-distended, no guarding, LLQ tenderness without rebound tenderness or Rovsing's, CVA tenderness to percussion on L. MSK: Normal ROM, no swelling/deformity to bilateral UEs or LEs, moving all extremities without weakness, no cyanosis, spine midline without tenderness, normal curvature. NEURO: Mental Status AAOx4 - alert to person, place, time, events, memory impairment acting at baseline per No facial droop, no forehead involvement. Motor: No focal weakness - strength 5/5 in bilateral UEs and LEs, proximal and distal, symmetric. Sensory: sensation intact to light touch globally. Gait normal: patient ambulated without ataxia into ED room. PSYCH: euthymic, cooperative, pleasant, appropriate speech Course Vital Signs Vital signs: Vital Signs Temperature 37.2 C 09/11/25 09:57 Pulse 67 09/11/25 09:57 Respiratory Rate 16 09/11/25 09:57 Blood Pressure 178/94 H 09/11/25 09:57 Pulse Oximetry 98 09/11/25 09:57 Temperature 37.2 C 09/11/25 09:59 Pulse 76 09/11/25 11:04 Respiratory Rate 22 09/11/25 11:04 Blood Pressure 202/71 H 09/11/25 11:04 Blood Pressure Mean 114 09/11/25 11:04 Pulse Oximetry 98 09/11/25 11:04 Oxygen Delivery Method Room Air 09/11/25 11:04 Oxygen Flow Rate 0 09/11/25 11:04 Pain Level 8 09/11/25 09:59 Comment Asymptomatic; provider notified. 09/11/25 11:04 Lab/Test Results Lab/Test Results: Laboratory Tests Range/Units 09/11/25 09/11/25 10:07 10:57 WBC (4.4-10.8) 10^3/uL 11.73 H RBC (3.93-5.22) 10^6/uL 4.44 Hgb (11.2-15.7) g/dL 12.8 Hct (36.0-46.0) % 39.2 MCV (80-95) fL 88 MCH (27.0-33.0) pg 28.8 MCHC (32.0-36.0) % 32.7 RDW (11.7-14.6) % 13.0 Plt Count (130-400) 10^3/uL 468 H MPV (8.0-11.0) fL 9.5 Immature Gran % % 0.4 Neutrophils % % 66.8 Lymphocytes % % 22.9 Monocytes % % 8.8 Eosinophils % % 0.8 Basophils % % 0.3 Nucleated RBC % (0.0-0.3) % 0.0 Absolute Neutrophils (1.2-6.7) 10^3/uL 7.84 H Absolute Lymphocytes (1.2-3.4) 10^3/uL 2.69 Absolute Monocytes (0.1-0.8) 10^3/uL 1.03 H Absolute Eosinophils (0.0-0.7) 10^3/uL 0.09 Absolute Basophils (0.0-0.2) 10^3/uL 0.04 VBG Lactate (<or=2.0) mmol/L 1.9 Sodium (136-145) mmol/L 139 Potassium (3.5-5.1) mmol/L 4.2 Chloride (98-107) mmol/L 104 Carbon Dioxide (20.0-31.0) mmol/L 25.1 Anion Gap (3-11) mmol/L 9.9 BUN (9-23) mg/dL 10 Creatinine (0.55-1.02) mg/dL 0.76 Est GFR (CKD-EPI 2020) (mL/min/1.73m2) 72.37 Glucose (74-106) mg/dL 99 Calcium (8.3-10.6) mg/dL 9.0 Total Bilirubin (0.2-1.2) mg/dL 0.40 AST (<34) U/L 17 ALT (10-49) U/L 12 Alkaline Phosphatase (46-116) U/L 98 Total Protein (5.7-8.2) g/dL 7.5 Albumin (3.2-5.0) g/dL 4.1 Lipase (<53) U/L 38 Urine Color (Yellow) Yellow Urine Clarity (Clear) Clear Urine pH (5-8) 6.5 Ur Specific [place] (1.005-1.025) 1.020 Urine Protein (Neg-Trace) mg/dL Negative Urine Ketones (Negative) mg/dL Negative Urine Blood (Negative) Small H Urine Nitrite (Negative) Negative Urine Bilirubin (Negative) Negative Urine Urobilinogen (Up to 0.2) mg/dL 0.2 Ur Leukocyte Esterase (Negative) Negative Urine Glucose (Negative) mg/dL Negative Medical Decision Making This dictation utilizes [id number] dictation software and may contain unedited grammatical errors. 84 year-old female presents to ED today by POV/ambulating with her with a chief complaint of LLQ abdominal pain with onset noted the past day or two. Quality described as dull abdominal pain, no radiation to nausea/vomiting, fever, diarrhea, black/bloody stools, fever, cough, shortness of breath, chest pain, headache, body aches. Severity is described as moderate. Palliating factors include nothing specific. Provoking factors include nothing specific. Events leading up to the incident/Associated Symptoms: Patient endorses normal appetite, had Thanksgiving yesterday. Patients' medical history: History of appendectomy/cholecystectomy/hysterectomy, history of memory impairment. Family and social history: Eating normal diet, lives at home with her . Pertinent exam findings / vital signs include left lower quadrant tenderness without rebound tenderness, mild left CVA tenderness to percussion, lungs CTA, nontoxic and afebrile. Differential / pathologies of concern include diverticulitis, renal colic, SBO, gastroenteritis, gas pain, less likely c. difficile, abdominal migraine. Diagnostic studies of: - CBC, CMP, lactate, lipase, UA, CT ABD/pelvis with contrast. - CBC shows a nonspecific leukocytosis 11.7 without left shift or other major abnormalities - Lactate 1.9 - CMP without actionable abnormality - Lipase within normal limits - UA is benign - CT shows no acute pathology does show some stomach distention and gas by my read more pronounced than past CT Interventions of: - P.o. Tylenol, 15 mg IV Toradol, 1 L IVF NS, 40 mg p.o simethicone with significant improvement ED Course/Assessment/Plan: 84-year-old female presents with left lower quadrant abdominal pain, recent treatment for diverticulitis, denies diarrhea, denies lack of passing flatus, endorses just abdominal pain, denies nausea or vomiting, labs are reassuring for no severe infection or organ dysfunction of the abdomen, CT shows no acute pathology, no blockage, I do suspect patient is having gas pain as there is some distention of her stomach seen, stressed strict return criteria for any severe acute worsening or other emergent concerns, patient and patient's verbalized understanding of this plan. Findings not consistent with diverticulitis, SBO, obstructive uropathy, sepsis, colitis. Disposition of abdominal pain of unknown cause. Patient verbalized understanding of the plan and return to ED criteria and engaged in shared decision making. Medical Records Medical records reviewed: Yes I reviewed the patient's medical records. Imaging Data Radiologic Study: Attestation: I personally reviewed and interpreted this imaging study as follows: Imaging: CT Scan Radiologist's impression: EXAM: CT ABDOMEN PELVIS W CLINICAL HISTORY: LLQ tenderness. TECHNIQUE: Imaging Protocol: Axial computed tomography images with coronal and sagittal reformatted images were created and reviewed CONTRAST MATERIAL: Intravenous: Omnipaque 350 Contrast volume:75 ml Oral: no COMPARISON: CT CT ABDOMEN PELVIS W from 08/26/2025 FINDINGS: ABDOMEN and PELVIS: Lung Bases: No acute findings. Liver: Normal density. No suspicious mass. Gallbladder and biliary tract: Cholecystectomy.. No biliary dilation. Pancreas: Normal density. No abnormal calcifications or inflammatory process. No evidence of mass. Spleen: Normal. Kidneys: Normal size, contour and axis. No radiodense stones. No obstructive uropathy. Parapelvic cysts are again noted. No follow-up is recommended. No suspicious masses seen. Adrenal glands: No masses seen. Vasculature: Abdominal aorta non-dilated. Atherosclerotic changes. Soft tissues: Unremarkable. Bladder: No empty and not well evaluated. Bowel: No obstruction. No bowel wall thickening. Appendix normal. Diverticulosis of the sigmoid colon. No evidence of diverticulitis. Normal quantity of stool. Peritoneal cavity: No ascites. No focal collection. No mesenteric inflammatory response. No free air. Bones: Degenerative changes of both hips and lumbar spine. Mild scoliosis. Reproductive organs: hysterectomy. Lymph nodes: No pathologically enlarged lymph nodes. IMPRESSION:: No acute abnormality in the abdomen or pelvis. Diverticulosis but no evidence of diverticulitis. Lab Data Lab results reviewed: Yes I reviewed the patient's lab results. Labs: Laboratory Tests Range/Units 09/11/25 09/11/25 10:07 10:57 WBC (4.4-10.8) 10^3/uL 11.73 H RBC (3.93-5.22) 10^6/uL 4.44 Hgb (11.2-15.7) g/dL 12.8 Hct (36.0-46.0) % 39.2 MCV (80-95) fL 88 MCH (27.0-33.0) pg 28.8 MCHC (32.0-36.0) % 32.7 RDW (11.7-14.6) % 13.0 Plt Count (130-400) 10^3/uL 468 H MPV (8.0-11.0) fL 9.5 Immature Gran % % 0.4 Neutrophils % % 66.8 Lymphocytes % % 22.9 Monocytes % % 8.8 Eosinophils % % 0.8 Basophils % % 0.3 Nucleated RBC % (0.0-0.3) % 0.0 Absolute Neutrophils (1.2-6.7) 10^3/uL 7.84 H Absolute Lymphocytes (1.2-3.4) 10^3/uL 2.69 Absolute Monocytes (0.1-0.8) 10^3/uL 1.03 H Absolute Eosinophils (0.0-0.7) 10^3/uL 0.09 Absolute Basophils (0.0-0.2) 10^3/uL 0.04 VBG Lactate (<or=2.0) mmol/L 1.9 Sodium (136-145) mmol/L 139 Potassium (3.5-5.1) mmol/L 4.2 Chloride (98-107) mmol/L 104 Carbon Dioxide (20.0-31.0) mmol/L 25.1 Anion Gap (3-11) mmol/L 9.9 BUN (9-23) mg/dL 10 Creatinine (0.55-1.02) mg/dL 0.76 Est GFR (CKD-EPI 2020) (mL/min/1.73m2) 72.37 Glucose (74-106) mg/dL 99 Calcium (8.3-10.6) mg/dL 9.0 Total Bilirubin (0.2-1.2) mg/dL 0.40 AST (<34) U/L 17 ALT (10-49) U/L 12 Alkaline Phosphatase (46-116) U/L 98 Total Protein (5.7-8.2) g/dL 7.5 Albumin (3.2-5.0) g/dL 4.1 Lipase (<53) U/L 38 Urine Color (Yellow) Yellow Urine Clarity (Clear) Clear Urine pH (5-8) 6.5 Ur Specific [place] (1.005-1.025) 1.020 Urine Protein (Neg-Trace) mg/dL Negative Urine Ketones (Negative) mg/dL Negative Urine Blood (Negative) Small H Urine Nitrite (Negative) Negative Urine Bilirubin (Negative) Negative Urine Urobilinogen (Up to 0.2) mg/dL 0.2 Ur Leukocyte Esterase (Negative) Negative Urine RBC (0-2) HPF 3-5 H Urine WBC (0-5) HPF Negative Ur Epithelial Cells (Negative) HPF Few Urine Crystals (Negative) HPF Negative Urine Bacteria (Negative) HPF Few Urine Casts (Negative) LPF Negative Urine Mucus (Negative) Negative Ur Culture Indicated? No Urine Glucose (Negative) mg/dL Negative PFSH All Active Problems (Updated 09/11/25 @ 12:01 by MITALI Banuelos) Abdominal pain of unknown cause (Acute) Abdominal pain (Acute) Memory impairment (Acute) Elevated TSH (Acute) TIA (transient ischemic attack) (Acute) Vertigo (Acute) Medical History Paresthesia Breast lump Diverticulosis Hip pain Amnesia History of malignant neoplasm of uterine body Elevated blood pressure reading without diagnosis of hypertension Effusion of joint Fracture of lower leg Vitamin B deficiency Disseminated idiopathic skeletal hyperostosis Right lower quadrant abdominal pain Right upper quadrant abdominal pain Idiopathic osteoarthritis Insomnia Mass of left breast Hammer toe Chest pain Pt. states it was so quick and it went away, it went through my breast, and didn't last. Pt. states she didn't have it looked into because it was so quick and went away quick Diverticulosis of colon History of malignant neoplasm of endometrium Paresthesia of both hands Action tremor Surgical History History of bilateral carpal tunnel release History of colonoscopy History of open reduction and internal fixation (ORIF) procedure left ankle H/O spinal fusion History of cardiac cath 2000 Status post total abdominal hysterectomy and bilateral salpingo-oophorectomy (PATITO-BSO) History of cholecystectomy History of appendectomy Social History Smoking/Tobacco Use Status: Never Smoking risk assessment performed?: Yes Alcohol Intake: former Drug use: Never Substance use type: does not use Housing: house Do you feel safe at home: Yes Do you feel safe in your relationship?: Yes
[2025-09-11 11:20] LABS: WBC Negative HPF (0-5)
[2025-09-11 11:21] LABS: C & S Indicated? No
[2025-09-11] MEDS: Simethicone 80 MG CHEW 40 MG PO (11:42)
[2025-09-11 12:03] VITALS: BP 166/86; PULSE 72; RESP 20; O2SAT 98
== END 2025-09-11 12:12 | disposition home or self-care (01) ==
PROVIDERS: Emergency Provider Physician Assistant; PCP Family Medicine
DX: R10.32 Left lower quadrant pain (principal)
CPT/HCPCS: 80053; 83690; 96361; 96374; 99285; 74177; 81003; 81015; 83605; 85025; 99284; J1885; J3490